=== PATIENT | male | born 1965 | race African-American/Black ===

== ENCOUNTER 2016-10-03 19:01 | Observation (INO) | payer OTHER ==
[~2016-10-03] VITALS: Ht 182.9 cm; Wt 121.8 kg
[~2016-10-03 19:01] MED LIST: ATOR20TA15 PO; CIAL5TAB PO; DICL50TA PO; GLUC1000 PO; MULTCAP14 PO; NATE120T PO; VITA200013 PO; ZOSTINJ SQ; [UNRECOGNIZED DRUG - CODE] PO
[2016-10-03 19:04] VITALS: BP 145/83; PULSE 66; RESP 17; TEMP 98.6; O2SAT 99
--- NOTE | 2016-10-03 19:16 | PD ---
HPI Chief Complaint: Chest Pain Time Seen by Provider: 19:12 Travel History International Travel<30 days: No Contact w/Intl Traveler<30days: No Traveled to known affect area: No History of Present Illness HPI 51 y/o male here with central chest pain since yesterday that has been persistent. Also feel like both arms heavy. No Hx. Cardiac problems. Not Hypertension. + type 2 DM. Patient took Aspirin today. No fever, Chills, Cough, Heart burn or other symptoms. Pain not worse with exertion. PFSH Past Medical History Blood Disorders: No Cerebrovascular Accident: No Diabetes: Yes Myocardial Infarction: No Ulcer: No Past Surgical History Appendectomy: Yes Social History Alcohol Use: Yes (APPROX 1 DRINK PER MONTH) Tobacco Use: No Substance Use: No Allergies-Medications (Allergen,Severity, Reaction): Coded Allergies: Butalbital (Verified Adverse Reaction, Severe, hallucinating, severe weakness, 10/03/16) Uncoded Allergies: BYDUREON (Adverse Reaction, Severe, MUSCLE SPASMS, 07/02/15) Reported Meds & Prescriptions Reported Meds & Active Scripts Active Reported Glucophage (Metformin HCl) 1,000 Mg Tab 1,000 Mg PO BIDPC With a meal Physical Exam Narrative EXAM Completed at Medical Bed after placement. Data Data Last Documented VS Orders Electrocardiogram (10/03/16 19:32) Basic Metabolic Panel (Bmp) (10/03/16 19:32) Ckmb (Isoenzyme) Profile (10/03/16 19:32) Complete Blood Count With Diff (10/03/16 19:32) Prothrombin Time / Inr (Pt) (10/03/16 19:32) Act Partial Throm Time (Ptt) (10/03/16 19:32) Troponin I (10/03/16 19:32) Chest, Single Ap (10/03/16 19:32) Ecg Monitoring (10/03/16 19:32) Iv Access Insert/Monitor (10/03/16 19:32) Oximetry (10/03/16 19:32) Sodium Chloride 0.9% Flush (Ns Flush) (10/03/16 19:45) CKMB (10/03/16 19:45) CKMB% (10/03/16 19:45) Admit Order (Ed Use Only) (10/03/16 21:46) Labs MDM Medical Decision Making Medical Screen Exam Complete: Yes Emergency Medical Condition: Yes Condition: Stable Samson Mcgill Oct 03, 2016 19:16 Laboratory Tests Test 10/03/16 19:45 White Blood Count 8.2 TH/MM3 Red Blood Count 5.17 MIL/MM3 Hemoglobin 13.8 GM/DL Hematocrit 41.4 % Mean Corpuscular Volume 80.1 FL Mean Corpuscular Hemoglobin 26.7 PG Mean Corpuscular Hemoglobin 33.4 % Concent Red Cell Distribution Width 14.7 % Platelet Count 179 TH/MM3 Mean Platelet Volume 9.2 FL Neutrophils (%) (Auto) 61.0 % Lymphocytes (%) (Auto) 30.9 % Monocytes (%) (Auto) 7.4 % Eosinophils (%) (Auto) 0.4 % Basophils (%) (Auto) 0.3 % Neutrophils # (Auto) 5.0 TH/MM3 Lymphocytes # (Auto) 2.5 TH/MM3 Monocytes # (Auto) 0.6 TH/MM3 Eosinophils # (Auto) 0.0 TH/MM3 Basophils # (Auto) 0.0 TH/MM3 CBC Comment DIFF FINAL Differential Comment Prothrombin Time 10.6 SEC Prothromb Time International 1.0 RATIO Ratio Activated Partial 29.4 SEC Thromboplast Time Sodium Level 139 MEQ/L Potassium Level 3.6 MEQ/L Chloride Level 103 MEQ/L Carbon Dioxide Level 29.2 MEQ/L Anion Gap 7 MEQ/L Blood Urea Nitrogen 10 MG/DL Creatinine 1.15 MG/DL Estimat Glomerular Filtration 82 ML/MIN Rate Random Glucose 118 MG/DL Calcium Level 9.0 MG/DL Total Creatine Kinase 722 U/L Creatine Kinase MB 4.1 NG/ML Creatine Kinase MB % 0.6 % Troponin I LESS THAN 0.02 NG/ML [facility] Medical Decision Making Medical Screen Exam Complete: Yes Emergency Medical Condition: Yes Samson Mcgill Oct 03, 2016 19:16
--- NOTE | 2016-10-03 19:35 | PD ---
HPI Chief Complaint: Chest Pain Time Seen by Provider: 19:21 Travel History International Travel<30 days: No Contact w/Intl Traveler<30days: No Traveled to known affect area: No History of Present Illness HPI This patient complains of chest pain. Duration is 24 hours. Severity is moderate. Location is center and just left of center in his chest. Feels like an aching pressure. It is not exertional. He denies personal history of cardiac disease. Never had stress testing. He had an aspirin earlier today. No alleviating factors. PFSH Past Medical History Blood Disorders: No Cerebrovascular Accident: No Diabetes: Yes Myocardial Infarction: No Ulcer: No Past Surgical History Appendectomy: Yes Social History Alcohol Use: Yes (APPROX 1 DRINK PER MONTH) Tobacco Use: No Substance Use: No Allergies-Medications (Allergen,Severity, Reaction): Coded Allergies: Butalbital (Verified Adverse Reaction, Severe, hallucinating, severe weakness, 10/03/16) Uncoded Allergies: BYDUREON (Adverse Reaction, Severe, MUSCLE SPASMS, 07/02/15) Reported Meds & Prescriptions Reported Meds & Active Scripts Active Atorvastatin (Atorvastatin Calcium) 20 Mg Tab 20 Mg PO HS Must complete FASTING blood tests tomasz! Reported Diclofenac Potassium 50 Mg Tab 50 Mg PO Q8HR Multi For Him (Multiple Vitamins W/ Minerals) 1 Cap Cap 1 Cap PO DAILY Glucophage (Metformin HCl) 1,000 Mg Tab 1,000 Mg PO BIDPC With a meal Cialis (Tadalafil) 5 Mg Tab 5 Mg PO DAILY Do not exceed 1 dose/day. Review of Systems General / Constitutional: No: Fever Eyes: No: Visual changes HENT: No: Headaches Cardiovascular: Positive: Chest Pain or Discomfort Respiratory: No: Shortness of Breath Gastrointestinal: No: Abdominal Pain Genitourinary: No: Dysuria Musculoskeletal: No: Pain Skin: No Rash Neurologic: No: Weakness Psychiatric: No: Depression Endocrine: No: Polydipsia Hematologic/Lymphatic: No: Easy Bruising Physical Exam Narrative GENERAL: Well-nourished, well-developed patient in no apparent distress. SKIN: Focused skin assessment reveals no rash and nodules. Skin is Warm and dry. HEAD: Atraumatic. Normocephalic. EYES: Pupils equal and round. No scleral icterus. No injection or drainage. ENT: No nasal bleeding or discharge. Mucous membranes pink and moist. NECK: Trachea midline. No JVD. CARDIOVASCULAR: Regular rate and rhythm. No murmur appreciated. RESPIRATORY: No accessory muscle use. Clear to auscultation. Breath sounds equal bilaterally. GASTROINTESTINAL: Abdomen soft, non-tender, nondistended. Hepatic and splenic margins not palpable. MUSCULOSKELETAL: No obvious deformities. No clubbing. No cyanosis. No edema. NEUROLOGICAL: Awake and alert. No obvious cranial nerve deficits. Motor grossly within normal limits. Normal speech. PSYCHIATRIC: Appropriate mood and affect; insight and judgment normal. Data Data Last Documented VS Vital Signs Date Time Temp Pulse Resp B/P Pulse Ox O2 Delivery O2 Flow Rate FiO2 10/03/16 19:37 60 18 135/72 99 Nasal Cannula 2 10/03/16 19:04 98.6 Orders Electrocardiogram (10/03/16 19:32) Basic Metabolic Panel (Bmp) (10/03/16 19:32) Ckmb (Isoenzyme) Profile (10/03/16 19:32) Complete Blood Count With Diff (10/03/16 19:32) Prothrombin Time / Inr (Pt) (10/03/16 19:32) Act Partial Throm Time (Ptt) (10/03/16 19:32) Troponin I (10/03/16 19:32) Chest, Single Ap (10/03/16 19:32) Ecg Monitoring (10/03/16 19:32) Iv Access Insert/Monitor (10/03/16 19:32) Oximetry (10/03/16 19:32) Sodium Chloride 0.9% Flush (Ns Flush) (10/03/16 19:45) CKMB (10/03/16 19:45) CKMB% (10/03/16 19:45) Admit Order (Ed Use Only) (10/03/16 21:46) Labs Laboratory Tests Test 10/03/16 19:45 White Blood Count 8.2 TH/MM3 Red Blood Count 5.17 MIL/MM3 Hemoglobin 13.8 GM/DL Hematocrit 41.4 % Mean Corpuscular Volume 80.1 FL Mean Corpuscular Hemoglobin 26.7 PG Mean Corpuscular Hemoglobin 33.4 % Concent Red Cell Distribution Width 14.7 % Platelet Count 179 TH/MM3 Mean Platelet Volume 9.2 FL Neutrophils (%) (Auto) 61.0 % Lymphocytes (%) (Auto) 30.9 % Monocytes (%) (Auto) 7.4 % Eosinophils (%) (Auto) 0.4 % Basophils (%) (Auto) 0.3 % Neutrophils # (Auto) 5.0 TH/MM3 Lymphocytes # (Auto) 2.5 TH/MM3 Monocytes # (Auto) 0.6 TH/MM3 Eosinophils # (Auto) 0.0 TH/MM3 Basophils # (Auto) 0.0 TH/MM3 CBC Comment DIFF FINAL Differential Comment Prothrombin Time 10.6 SEC Prothromb Time International 1.0 RATIO Ratio Activated Partial 29.4 SEC Thromboplast Time Sodium Level 139 MEQ/L Potassium Level 3.6 MEQ/L Chloride Level 103 MEQ/L Carbon Dioxide Level 29.2 MEQ/L Anion Gap 7 MEQ/L Blood Urea Nitrogen 10 MG/DL Creatinine 1.15 MG/DL Estimat Glomerular Filtration 82 ML/MIN Rate Random Glucose 118 MG/DL Calcium Level 9.0 MG/DL Total Creatine Kinase 722 U/L Creatine Kinase MB 4.1 NG/ML Creatine Kinase MB % 0.6 % Troponin I LESS THAN 0.02 NG/ML [facility] Medical Decision Making Medical Screen Exam Complete: Yes Emergency Medical Condition: Yes Medical Record Reviewed: Yes Differential Diagnosis Differential diagnosis includes FL, angina, pericarditis, pleurisy, GERD, anxiety. Narrative Course I have reviewed the patient's electronic medical record. Patient was here several months ago with ankle injury IV placed I reviewed the EKG which shows sinus rhythm with heart rate of 59 and first- degree AV block, no ST elevation I reviewed the chest x-ray which is negative Extended cardiac monitoring shows sinus bradycardia without ectopy CBC is normal Metabolic profile is normal CK shows an elevation of CK of 700 but the MB percent is normal Troponin is negative Coagulation studies are normal Patient is multiple risk factors for cardiac disease but he has atypical pain with a negative workup here. He will be a 23 hour observation in the chest pain center in order to rule out cardiac cause of his symptoms. Diagnosis Primary Impression: Chest pain in adult Additional Impressions: Diabetes mellitus type 2, uncomplicated Qualified Code: E11.9 - Type 2 diabetes mellitus without complication, without long-term current use of insulin Hyperlipidemia with target LDL less than 100 Admitting Information Admitting Physician Requests: Observation Jose Berman MD Oct 03, 2016 19:35
[2016-10-03 19:37] VITALS: BP 135/72; PULSE 60; RESP 18; O2SAT 99
[2016-10-03] MEDS ORDERED: SODIUM CHLORIDE 0.9% FLUSH 10 ML FLUSH IVF PRN (19:45)
--- NOTE | 2016-10-03 20:23 | RADRPT ---
EXAM DATE/TIME: 10/03/2016 20:07 [place] COMPARISON: No previous studies available for comparison. INDICATIONS : Chest Pressure MEDICAL HISTORY : None. SURGICAL HISTORY : None. ENCOUNTER: Initial ACUITY: 1 day PAIN SCORE: 3/10 LOCATION: Bilateral chest FINDINGS: A single view of the chest demonstrates the lungs to be symmetrically aerated without evidence of mas s, infiltrate or effusion. The cardiomediastinal contours are unremarkable. Osseous structures are intact. CONCLUSION: No acute cardiopulmonary process. Torsten Duffy MD on October 03, 2016 at 20:21 Board Certified Radiologist. This report was verified electronically.
[2016-10-03 20:30] LABS: BASOPHIL % 0.3 % (0.0-2.0); EOSINOPHIL % 0.4 % (0.0-4.0); HEMATOCRIT 41.4 % (39.0-51.0); HEMO FLAGS DIFF FINAL; LYMPH % 30.9 % (9.0-44.0); LYMPHOCYTE # 2.5 TH/MM3 (1.0-4.8); MEAN CELL VOLUME 80.1 FL (80.0-100.0); MEAN CORPUSCULAR HEMOGLOBIN 26.7 PG (27.0-34.0); MEAN CORPUSCULAR HGB CONC 33.4 % (32.0-36.0); MONO % 7.4 % (0.0-8.0); PLATELET COUNT 179 TH/MM3 (150-450); RED BLOOD COUNT 5.17 MIL/MM3 (4.50-5.90); RED CELL DISTRIBUTION WIDTH 14.7 % (11.6-17.2); WHITE BLOOD COUNT 8.2 TH/MM3 (4.0-11.0)
[2016-10-03 20:37] LABS: APTT (PATIENT) 29.4 SEC (24.3-30.1); PROTHROMBIN TIME - PATIENT 10.6 SEC (9.8-11.6)
[2016-10-03 20:46] LABS: ANION GAP 7 MEQ/L (5-15); BICARBONATE 29.2 MEQ/L (21.0-32.0); BLOOD UREA NITROGEN 10 MG/DL (7-18); CHLORIDE 103 MEQ/L (98-107); GLOMERULAR FILTRATION RATE 82 ML/MIN (>89); POTASSIUM 3.6 MEQ/L (3.5-5.1); SODIUM (NA) 139 MEQ/L (136-145)
[2016-10-03 20:50] LABS: CREATINE KINASE 722 U/L (39-308)
[2016-10-03 21:03] LABS: CKMB 4.1 NG/ML (0.5-3.6)
[2016-10-03 22:35] VITALS: BP 158/78; PULSE 78; RESP 18; O2SAT 99
[2016-10-04] MEDS ORDERED: SODIUM CHLORIDE 0.9% FLUSH 10 ML FLUSH IV FLUSH ONE (02:30)
[2016-10-04] MEDS ORDERED: ONDANSETRON HCL 4 MG/2 ML VIAL IV PRN (02:30)
[2016-10-04] MEDS ORDERED: SODIUM CHLORIDE 0.9% FLUSH 10 ML FLUSH IV FLUSH PRN (02:30)
[2016-10-04 02:51] VITALS: BP 140/68; PULSE 88; RESP 18; O2SAT 99
[2016-10-04 02:56] VITALS: O2SAT 99
[2016-10-04 03:53] LABS: CREATINE KINASE 541 U/L (39-308)
[2016-10-04 04:07] LABS: CKMB 3.5 NG/ML (0.5-3.6)
[2016-10-04 04:34] VITALS: BP 126/81; PULSE 59; RESP 19; TEMP 98.1; O2SAT 98
[2016-10-04 07:13] LABS: CREATINE KINASE 459 U/L (39-308)
[2016-10-04 07:25] LABS: CKMB 3.1 NG/ML (0.5-3.6)
[2016-10-04 08:58] VITALS: PULSE 58
--- NOTE | 2016-10-04 08:59 | HHI.HP ---
HPI Primary Care Physician Ariana Rodas MD Chief Complaint Chest pressure History of Present Illness 51-year-old male with known diabetes and hyperlipidemia presents to the emergency room for further evaluation of chest pain. Onset Wednesday approximately 8 PM. Location substernal described as chest pressure. No radiation. Has been constant throughout weekend. Movement or position does not make pain better or worse. Nonexertional component. Deep breathing does not make pain better or worse. No associated symptoms of nausea, vomiting, or diaphoresis. No relieving factors. Precipitating factors may have been work related. 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 Never had formal stress testing. encouraged him to come to the emergency room for further evaluation. Review of Systems General: No fatigue,weakness, fever, chills, or recent illness. Has been in his general state of health diabetes controlled, last hemoglobin A1c 3 months ago 6.3%. HEENT: No HOFF, no vision changes, no nasal congestion or drainage, no dysphasia CV: As stated above. No current chest pain or pressure. No palpitations, intermittent leg pain, dizziness RESP: No SOB, cough, wheeze, or recent URI. GI: No nausea, vomiting, bowel changes, diarrhea, constipation, pain, distention , melena, blood in the stool. No change in appetite, no unintentional weight gain or weight loss : No dysuria, urgency, frequency EXT: No lower leg edema, no paraesthesias MS: No discomfort or change in ROM NEURO: No change in memory, dizziness, difficulty with balance, LOC, motor/ sensory deficits PSYCH: No anxiety or depression SKIN: No rashes, no concerning lesions Past Family Social History Allergies: Coded Allergies: Butalbital (Verified Adverse Reaction, Severe, hallucinating, severe weakness, 10/03/16) Uncoded Allergies: BYDUREON (Adverse Reaction, Severe, MUSCLE SPASMS, 07/02/15) Past Medical History Diabetesdiagnosed in 2009, hyperlipidemia Past Surgical History Appendectomy, 2008 scrotal hematoma evacuation Reported Medications Reported Meds & Active Scripts Active Atorvastatin (Atorvastatin Calcium) 20 Mg Tab 20 Mg PO HS Must complete FASTING blood tests tomasz! Glucophage (Metformin HCl) 1,000 Mg Tab 1,000 Mg PO BIDPC With a meal (generally takes 500 mg daily due to GI effects, last hemoglobin A1c reported to be 6.3% 3 months ago) No longer takes multivitamin, diclofenac, or Cialis. Does not recall ever being on an NURA or ARB. Active Ordered Medications Current Medications Medications (Trade) Dose Ordered Sig/Ana Route Start Time Stop Time Status Last Admin (Zofran Inj) 4 mg Q6H PRN IV 10/04/16 02:30 (Aspirin) 325 mg DAILY PO 10/04/16 09:00 10/04/16 08:47 Family History Mother at age 65 from heart problems, hypertension, diabetes, and. Mother needed open heart surgery approximately age 55 never completed. Social History Known diabetes and hyperlipidemia. No known hypertension. Lifelong nonsmoker. Rare alcohol use. Denies any illegal drug use. 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 . Past cardiac testing No past cardiac testing. Physical Exam Vital Signs Vital Signs Date Time Temp Pulse Resp B/P Pulse Ox O2 Delivery O2 Flow Rate FiO2 10/04/16 04:34 98.1 59 19 126/81 98 10/04/16 02:56 99 10/04/16 02:51 88 18 140/68 99 Room Air 10/03/16 22:35 78 18 158/78 99 Nasal Cannula 2 10/03/16 19:37 60 18 135/72 99 Nasal Cannula 2 10/03/16 19:37 135/72 10/03/16 19:37 57 10/03/16 19:04 98.6 66 17 145/83 99 Room Air Physical Exam GENERAL: Alert WN, WD, NAD, pleasant, male HEAD: NC, AT EYES: Sclera clear, conjunctiva without injection, pupils equal and round ENT: Mucous membranes pink and moist, no nasal discharge or bleeding NECK: Supple, no masses, trachea midline CV: RRR, without murmur, rub, gallop, no JVD, S1-S2 no S3-S4. No carotid bruits. RESP: Clear lungs throughout bilateral, no crackles, wheeze, rhonchi, symmetrical chest rise, nonlabored, able to speak in full sentences ABD: Soft, NT, ND, obese, no masses, positive bowel tones BACK: No CVAT, no scoliosis EXT: Pulses +24, no dependent edema MS: Normal tone 4 extremities, nontender, no obvious deformities, full range of motion NEURO: CN II through CN XII grossly intact, motor strength 5/5, gait WNL PSYCH: A+O 3, pleasant affect, appropriate speech, appropriate mood and affect , insight and judgment SKIN: Normal turgor, normal texture, no lesions, no rashes, brisk cap refill, even hair distribution Laboratory Laboratory Tests Test 10/03/16 10/04/16 10/04/16 19:45 03:15 06:20 White Blood Count 8.2 Red Blood Count 5.17 Hemoglobin 13.8 Hematocrit 41.4 Mean Corpuscular Volume 80.1 Mean Corpuscular Hemoglobin 26.7 Mean Corpuscular Hemoglobin 33.4 Concent Red Cell Distribution Width 14.7 Platelet Count 179 Mean Platelet Volume 9.2 Neutrophils (%) (Auto) 61.0 Lymphocytes (%) (Auto) 30.9 Monocytes (%) (Auto) 7.4 Eosinophils (%) (Auto) 0.4 Basophils (%) (Auto) 0.3 Neutrophils # (Auto) 5.0 Lymphocytes # (Auto) 2.5 Monocytes # (Auto) 0.6 Eosinophils # (Auto) 0.0 Basophils # (Auto) 0.0 CBC Comment DIFF FINAL Differential Comment Prothrombin Time 10.6 Prothromb Time International 1.0 Ratio Activated Partial 29.4 Thromboplast Time Sodium Level 139 Potassium Level 3.6 Chloride Level 103 Carbon Dioxide Level 29.2 Anion Gap 7 Blood Urea Nitrogen 10 Creatinine 1.15 Estimat Glomerular Filtration 82 Rate Random Glucose 118 Calcium Level 9.0 Total Creatine Kinase 722 541 459 Creatine Kinase MB 4.1 3.5 3.1 Creatine Kinase MB % 0.6 0.6 0.7 Troponin I LESS THAN 0.02 LESS THAN 0.02 LESS THAN 0.02 Result Diagram: 10/03/16194410/03/161944 Imaging Last Impressions Chest X-Ray 10/03/161931 Signed Impressions: Service Date/Time: Monday, October 03, 2016 20:07 - CONCLUSION: No acute cardiopulmonary process. Torsten Duffy MD Course EKGs Normal sinus bradycardia, first-degree AV block, no ST segment changes Assessment and Plan Assessment and Plan #1 Chest painadmitted to chest pain center. Ruled out with 3 sets of EKGs, cardiac enzymes, and monitored overnight. Will be seen and evaluated by Dr. Joel Rios. Discussed the likelihood of patient complete an exercise stress test as he has never had any formal cardiac testing. Patient is agreeable to this plan a care. Atypical chest pain most likely musculoskeletal in nature. #2 Diabetescontinue metformin. Encouraged patient to discuss with PCP and/or costume maker adding an NURA or ARB to medication regimen. #3 HyperlipidemiaHold Lipitor at this time, follow up with PCP for redraw of CPK in one month. #4 Musculoskeletal painmay use warm heat to affected area, naproxen or ibuprofen when necessary for pain, follow with PCP if pain continues. Marjorie Soriano [facility] Oct 04, 2016 08:59
[2016-10-04] MEDS ORDERED: NITROGLYCERIN 0.4 MG SL 25 TABS/BTL SL PRN (09:00)
[2016-10-04] MEDS ORDERED: ACETAMINOPHEN 500 MG CPLT PO PRN (09:00)
[2016-10-04] MEDS ORDERED: ASPIRIN 325 MG TAB PO SCH (09:00)
[2016-10-04 12:31] VITALS: BP 135/88; PULSE 76; RESP 18; TEMP 97.2; O2SAT 99
--- NOTE | 2016-10-04 13:17 | TR ---
Date Performed: 10/04/2016 Time Performed: 12:04:01 DOCTOR: Joel Rios DRUG LIST: CLINICAL HISTORY: CHEST PAIN REASON FOR TEST: REASON FOR ENDING: OBSERVATION: CONCLUSION: Rito protocol completed. Stopped sec to reaching target heart rate and leg fatigue. Maximum VI=152 Target HR Achieved=85.0% Maximum GX=249/82 Total Exercise Time=7:25. No st t changes to sugg ischemia. No reprod chest discomfort. Rare PVC. Good exercise tolerance. Normal bp response. Recovery quick and unremarkable. COMMENTS: Conclusion: Normal treadmill exercise. No evidence of ischemia.
--- NOTE | 2016-10-04 13:31 | HHI.DCPOC ---
Discharge Care Plan Diagnosis: (1) Musculoskeletal chest pain (2) Elevated CPK (3) Diabetes mellitus type 2, uncomplicated Goals to Promote Your Health * To prevent worsening of your condition and complications * To maintain your health at the optimal level Directions to Meet Your Goals Take your medications as prescribed Follow your dietary instruction Follow activity as directed Keep your appointments as scheduled Take your immunizations and boosters as scheduled If your symptoms worsen call your PCP, if no PCP go to Urgent Care Center or Emergency Room Smoking is Dangerous to Your Health. Avoid second hand smoke Call the 24-hour hour crisis hotline for domestic abuse at Marjorie Soriano Oct 04, 2016 13:31
--- NOTE | 2016-10-04 15:12 | EKG ---
Date Performed: 10/03/2016 Time Performed: 19:47:06 PTAGE: 51 years EKG: SINUS BRADYCARDIA WITH FIRST DEGREE AV BLOCK Poor R wave progression ABNORMAL ECG PREVIOUS TRACING : 08/01/2002 13.35 Since previous tracing, no significant change noted DOCTOR: Joel Rios Interpretating Date/Time 10/04/2016 15:11:25
--- NOTE | 2016-10-04 15:17 | EKG ---
Date Performed: 10/04/2016 Time Performed: 03:17:45 PTAGE: 51 years EKG: SINUS BRADYCARDIA WITH FIRST DEGREE AV BLOCK Poor R wave progression ABNORMAL ECG PREVIOUS TRACING : 10/03/2016 19.47 Since previous tracing, no significant change noted DOCTOR: Joel Rios Interpretating Date/Time 10/04/2016 15:14:47
--- NOTE | 2016-10-04 15:17 | EKG ---
Date Performed: 10/04/2016 Time Performed: 06:25:53 PTAGE: 51 years EKG: SINUS BRADYCARDIA WITH FIRST DEGREE AV BLOCK Poor R wave progression ABNORMAL ECG PREVIOUS TRACING : 10/03/2016 19.47 Since previous tracing, no significant change noted DOCTOR: Joel Rios Interpretating Date/Time 10/04/2016 15:16:40
[2016-10-04] MEDS ORDERED: metFORMIN HCL 500 MG TAB PO SCH (18:00)
[2016-10-04] MEDS ORDERED: ATORVASTATIN 20 MG TAB PO SCH (21:00)
[2016-10-07] MEDS ORDERED: PRAV20TA2 PO (11:46)
--- NOTE | 2016-10-08 11:24 | PD ---
Physical Exam Date Seen by Provider: Oct 03, 2016 Time Seen by Provider: 19:20 Narrative HPI 51 y/o male here with central chest pain since yesterday that has been persistent. Also feel like both arms heavy. No Hx. Cardiac problems. Not Hypertension. + type 2 DM. Patient took Aspirin today. No fever, Chills, Cough, Heart burn or other symptoms. Pain not worse with exertion. Data Data Orders Electrocardiogram (10/03/16 19:32) Basic Metabolic Panel (Bmp) (10/03/16 19:32) Ckmb (Isoenzyme) Profile (10/03/16 19:32) Complete Blood Count With Diff (10/03/16:32) Prothrombin Time / Inr (Pt) (10/03/16:32) Act Partial Throm Time (Ptt) (10/03/16:32) Troponin I (10/03/16 19:32) Chest, Single Ap (10/03/16 19:32) Ecg Monitoring (10/03/16 19:32) Iv Access Insert/Monitor (10/03/16 19:32) Oximetry (10/03/16 19:32) Sodium Chloride 0.9% Flush (Ns Flush) (10/03/16 19:45) CKMB (10/03/16 19:45) CKMB% (10/03/16 19:45) Admit Order (Ed Use Only) (10/03/16 21:46) [facility] Medical Record Reviewed: Yes Supervised Visit with MEETA: Yes Diagnosis Primary Impression: Chest pain in adult Additional Impressions: Hyperlipidemia with target LDL less than 100 Diabetes mellitus type 2, uncomplicated Patient Instructions: Metformin (By mouth), Chest Pain (DC) Condition: Stable Samson Mcgill Oct 08, 2016 11:24
== END 2016-10-04 15:15 | disposition home or self-care (01) ==
LOC: NEPE 19:01 → NEDA 21:48 → NEPGCP 10-04 04:04
DX: R07.89 Other chest pain (principal); I44.0 Atrioventricular block, first degree; M79.1 Myalgia; E11.9 Type 2 diabetes mellitus without complications; I10 Essential (primary) hypertension; E78.5 Hyperlipidemia, unspecified; Z79.84 Long term (current) use of oral hypoglycemic drugs
CPT/HCPCS: 71010; 80048; 82550; 82552; 84484; 85025; 85610; 85730; 93005; 93017; 99285; G0378

== ENCOUNTER 2017-08-26 12:55 | Inpatient (IN) | payer OTHER ==
[~2017-08-26] VITALS: Ht 182.9 cm; Wt 130.4 kg
[2017-08-26] VITALS (9 sets, daily range): BP systolic 133–191; BP diastolic 75–118; PULSE 65–81; RESP 16–21; TEMP 97.6–98.9; O2SAT 98–100
[~2017-08-26 12:55] MED LIST changes: -ATOR20TA15 PO; +BENZ1CAP54 PO; -CIAL5TAB PO; -DICL50TA PO; +FLUT50SP EACH NARE; +MONT10TA4 PO; -MULTCAP14 PO; -NATE120T PO; -VITA200013 PO; -ZOSTINJ SQ; -[UNRECOGNIZED DRUG - CODE] PO
[2017-08-26] MEDS ORDERED: EZET1TAB8 PO (13:27)
[2017-08-26] MEDS ORDERED: CIAL5TAB PO (13:27)
[2017-08-26] MEDS ORDERED: CHOL1CAP34 PO (13:27)
[2017-08-26] MEDS ORDERED: SODIUM CHLORIDE 0.9% FLUSH 10 ML FLUSH IVF PRN (13:30)
--- NOTE | 2017-08-26 13:55 | PD ---
HPI Chief Complaint: Numbness/Tingling Time Seen by Provider: 13:11 Travel History International Travel<30 days: No Contact w/Intl Traveler<30days: No Traveled to known affect area: No History of Present Illness HPI Patient is a 52-year-old male presenting to the emergency department for evaluation of right arm, face and hand numbness. Patient states it occurred last Wednesday, resolved and then occurred again Wednesday and has been present since. States it feels as if his arm is sleeping and tingly. He denies any chest pain, shortness of breath, headache. He states that he has been fighting a cold for the last week with symptoms including nasal congestion, cough. He last took ibuprofen yesterday. He denies any weakness or in his extremities. No speech abnormalities or slurring, no facial drooping. Symptom onset was gradual, symptom severity is mild to moderate. There are no alleviating factors. 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 Patient's past medical history is significant for type 2 diabetes, hyperlipidemia, obesity, vitamin D deficiency, BPH. PFSH Past Medical History Cardiovascular Problems: Yes High Cholesterol: Yes Diabetes: Yes Patient Takes Glucophage: Yes Genitourinary: Yes (BPH) Medical other: Yes (VITAMIN D DEFICIENCY ) Influenza Vaccination: Yes Past Surgical History Appendectomy: Yes Coronary Artery Bypass Graft: No Other Surgery: Yes (scrotal hematoma 2009) Family History Family Myocardial Infarction: Yes Social History Alcohol Use: No Tobacco Use: No Substance Use: No Allergies-Medications (Allergen,Severity, Reaction): Coded Allergies: butalbital (Unverified Adverse Reaction, Severe, hallucinating, severe weakness, 08/26/17) Uncoded Allergies: BYDUREON (Adverse Reaction, Severe, MUSCLE SPASMS, 07/02/15) Reported Meds & Prescriptions Reported Meds & Active Scripts Active Montelukast (Montelukast Sodium) 10 Mg Tab 10 Mg PO HS Reported Ezetimibe 10 Mg Tab 10 Mg PO DAILY Cialis (Tadalafil) 5 Mg Tab 5 Mg PO DAILY Do not exceed 1 dose/day. Vitamin D3 (Cholecalciferol) 50,000 Unit Cap 50,000 Units PO Q7D Glucophage (Metformin HCl) 1,000 Mg Tab 1,000 Mg PO BIDPC With a meal Review of Systems Except as stated in HPI: all other systems reviewed are Neg HENT: No: Headaches Cardiovascular: No: Chest Pain or Discomfort Respiratory: No: Shortness of Breath Gastrointestinal: No: Nausea, Abdominal Pain Neurologic: Positive: Paresthesia, Sensory Disturbance, No: Weakness Physical Exam Narrative GENERAL: Obese, well-developed, alert -[place] male. Presenting in no acute distress SKIN: Warm and dry. HEAD: Atraumatic. Normocephalic. EYES: Pupils equal and round. No scleral icterus. No injection or drainage. ENT: No nasal bleeding or discharge. Mucous membranes pink and moist. NECK: Trachea midline. No JVD. CARDIOVASCULAR: Regular rate and rhythm. 2/6 systolic murmur RESPIRATORY: No accessory muscle use. Clear to auscultation. Breath sounds equal bilaterally. GASTROINTESTINAL: Abdomen soft, non-tender, nondistended. Hepatic and splenic margins not palpable. MUSCULOSKELETAL: Extremities without clubbing, cyanosis, or edema. No obvious deformities. NEUROLOGICAL: Awake and alert. No obvious cranial nerve deficits. Motor grossly within normal limits. Five out of 5 muscle strength in the arms and legs. Normal speech. No focal deficits. PSYCHIATRIC: Appropriate mood and affect; insight and judgment normal. Data Data Last Documented VS Vital Signs Date Time Temp Pulse Resp B/P (MAP) Pulse Ox O2 Delivery O2 Flow Rate FiO2 08/26/17 14:15 69 18 137/78 (97) 98 Room Air 08/26/17 13:05 98.9 Orders Orders Electrocardiogram (08/26/17 13:22) Prothrombin Time / Inr (Pt) (08/26/17 13:22) Act Partial Throm Time (Ptt) (08/26/17 13:22) Complete Blood Count With Diff (08/26/17 13:22) Comprehensive Metabolic Panel (08/26/17 13:22) Troponin I (08/26/17 13:22) Ct Brain W/O Iv Contrast(Rout) (08/26/17 13:22) Ecg Monitoring (08/26/17 13:22) Iv Access Insert/Monitor (08/26/17 13:22) Oximetry (08/26/17 13:22) Blood Glucose (08/26/17 13:22) Sodium Chloride 0.9% Flush (Ns Flush) (08/26/17 13:30) Ct Cerv Spine W/O Contrast (08/26/17 ) Mri Brain W/O Contrast (08/26/17 ) Aspirin Chew (Aspirin Chew) (08/26/17 15:45) Mra Brain W/O Contrast (Cow) (08/26/17 ) Admit Order (Ed Use Only) (08/26/17 15:50) Labs Laboratory Tests Test 08/26/17 13:05 White Blood Count 6.7 TH/MM3 Red Blood Count 5.34 MIL/MM3 Hemoglobin 14.1 GM/DL Hematocrit 42.9 % Mean Corpuscular Volume 80.2 FL Mean Corpuscular Hemoglobin 26.4 PG Mean Corpuscular Hemoglobin Concent 32.9 % Red Cell Distribution Width 14.3 % Platelet Count 193 TH/MM3 Mean Platelet Volume 8.5 FL Neutrophils (%) (Auto) 64.2 % Lymphocytes (%) (Auto) 29.6 % Monocytes (%) (Auto) 5.7 % Eosinophils (%) (Auto) 0.2 % Basophils (%) (Auto) 0.3 % Neutrophils # (Auto) 4.3 TH/MM3 Lymphocytes # (Auto) 2.0 TH/MM3 Monocytes # (Auto) 0.4 TH/MM3 Eosinophils # (Auto) 0.0 TH/MM3 Basophils # (Auto) 0.0 TH/MM3 CBC Comment DIFF FINAL Differential Comment Prothrombin Time 9.7 SEC Prothromb Time International Ratio 1.0 RATIO Activated Partial Thromboplast Time 26.8 SEC Blood Urea Nitrogen 11 MG/DL Creatinine 1.13 MG/DL Random Glucose 269 MG/DL Total Protein 8.1 GM/DL Albumin 3.7 GM/DL Calcium Level 9.6 MG/DL Alkaline Phosphatase 86 U/L Aspartate Amino Transf (AST/SGOT) 31 U/L Alanine Aminotransferase (ALT/SGPT) 78 U/L Total Bilirubin 0.3 MG/DL Sodium Level 131 MEQ/L Potassium Level 4.1 MEQ/L Chloride Level 96 MEQ/L Carbon Dioxide Level 26.7 MEQ/L Anion Gap 8 MEQ/L Estimat Glomerular Filtration Rate 83 ML/MIN Troponin I LESS THAN 0.02 NG/ML MDM Medical Decision Making Medical Screen Exam Complete: Yes Emergency Medical Condition: Yes Interpretation(s) Laboratory Tests Test 08/26/17 13:05 White Blood Count 6.7 TH/MM3 Red Blood Count 5.34 MIL/MM3 Hemoglobin 14.1 GM/DL Hematocrit 42.9 % Mean Corpuscular Volume 80.2 FL Mean Corpuscular Hemoglobin 26.4 PG Mean Corpuscular Hemoglobin Concent 32.9 % Red Cell Distribution Width 14.3 % Platelet Count 193 TH/MM3 Mean Platelet Volume 8.5 FL Neutrophils (%) (Auto) 64.2 % Lymphocytes (%) (Auto) 29.6 % Monocytes (%) (Auto) 5.7 % Eosinophils (%) (Auto) 0.2 % Basophils (%) (Auto) 0.3 % Neutrophils # (Auto) 4.3 TH/MM3 Lymphocytes # (Auto) 2.0 TH/MM3 Monocytes # (Auto) 0.4 TH/MM3 Eosinophils # (Auto) 0.0 TH/MM3 Basophils # (Auto) 0.0 TH/MM3 CBC Comment DIFF FINAL Differential Comment Prothrombin Time 9.7 SEC Prothromb Time International Ratio 1.0 RATIO Activated Partial Thromboplast Time 26.8 SEC Blood Urea Nitrogen 11 MG/DL Creatinine 1.13 MG/DL Random Glucose 269 MG/DL Total Protein 8.1 GM/DL Albumin 3.7 GM/DL Calcium Level 9.6 MG/DL Alkaline Phosphatase 86 U/L Aspartate Amino Transf (AST/SGOT) 31 U/L Alanine Aminotransferase (ALT/SGPT) 78 U/L Total Bilirubin 0.3 MG/DL Sodium Level 131 MEQ/L Potassium Level 4.1 MEQ/L Chloride Level 96 MEQ/L Carbon Dioxide Level 26.7 MEQ/L Anion Gap 8 MEQ/L Estimat Glomerular Filtration Rate 83 ML/MIN Troponin I LESS THAN 0.02 NG/ML Vital Signs Date Time Temp Pulse Resp B/P (MAP) Pulse Ox O2 Delivery O2 Flow Rate FiO2 08/26/17 13:38 Room Air 08/26/17 13:05 98.9 71 16 142/ 99 Differential Diagnosis Radiculopathy versus neuropathy versus less likely TIA versus metabolic abnormality versus other Narrative Course Patient is a 52-year-old male that presented to emergency for evaluation of paresthesia in his right arm for the last week. There are no focal deficits on exam. Labs and imaging ordered and pending. Patient's vital signs are stable. He does have a family history of CVA. Patient has multiple risk factors including obesity, type [address] scan of the brain which was read by the radiologist shows a tiny focus of decreased attenuation in the expected region of the anterior limb of the right internal capsule consistent with possible lacunar infarct of indeterminate age, clinical correlation is recommended. CT scan of the cervical spine show small disc bulges at C4-5 C5-6 and C6-7. No acute fracture or destructive lesion identified. CBC with no acute findings, chemistry with a sodium of 131, chloride 96, glucose 269, cardiac enzymes are negative 1 set. Discussed findings with my attending physician. Patient will be given aspirin 324 mg chewable [address] dose[address] Discussed findings [address] Dr. vargas who accepted admission. MRI an MRI of the brain has been ordered, MRI checklist completed. Diagnosis Primary Impression: CVA (cerebral vascular accident) Qualified Codes: I63.9 - Cerebral infarction, unspecified Additional Impressions: Diabetes mellitus type 2, uncomplicated Qualified Codes: E11.9 - Type 2 diabetes mellitus without complications Paresthesia and pain of right extremity Admitting Information Admitting Physician Requests: Admit Condition: Stable Cande Solis Aug 26, 2017 13:55
[2017-08-26 13:57] LABS: AUTOMATED NEUTROPHIL # 4.3 TH/MM3 (1.8-7.7); BASOPHIL % 0.3 % (0.0-2.0); EOSINOPHIL % 0.2 % (0.0-4.0); HEMATOCRIT 42.9 % (39.0-51.0); HEMOGLOBIN 14.1 GM/DL (13.0-17.0); LYMPH % 29.6 % (9.0-44.0); MEAN CELL VOLUME 80.2 FL (80.0-100.0); MEAN CORPUSCULAR HEMOGLOBIN 26.4 PG (27.0-34.0); MEAN CORPUSCULAR HGB CONC 32.9 % (32.0-36.0); MEAN PLATELET VOLUME 8.5 FL (7.0-11.0); MONO % 5.7 % (0.0-8.0); MONOCYTE # 0.4 TH/MM3 (0-0.9); NEUT % 64.2 % (16.0-70.0); PLATELET COUNT 193 TH/MM3 (150-450); RED BLOOD COUNT 5.34 MIL/MM3 (4.50-5.90); RED CELL DISTRIBUTION WIDTH 14.3 % (11.6-17.2); WHITE BLOOD COUNT 6.7 TH/MM3 (4.0-11.0)
[2017-08-26 14:12] LABS: PROTHROMBIN TIME - PATIENT 9.7 SEC (9.8-11.6)
[2017-08-26 14:14] LABS: ALT (GPT) 78 U/L (12-78)
[2017-08-26 14:18] LABS: ALKALINE PHOSPHATASE 86 U/L (45-117); TOTAL BILIRUBIN ADULT 0.3 MG/DL (0.2-1.0); TOTAL PROTEIN 8.1 GM/DL (6.4-8.2); TROPONIN I LESS THAN 0.02 NG/ML (0.02-0.05)
[2017-08-26 14:25] LABS: ALBUMIN 3.7 GM/DL (3.4-5.0); AST (GOT) 31 U/L (15-37); BICARBONATE 26.7 MEQ/L (21.0-32.0); BLOOD UREA NITROGEN 11 MG/DL (7-18); CALCIUM 9.6 MG/DL (8.5-10.1); CHLORIDE 96 MEQ/L (98-107); CREATININE 1.13 MG/DL (0.60-1.30); GLOMERULAR FILTRATION RATE 83 ML/MIN (>89); GLUCOSE,RANDOM 269 MG/DL (74-106); SODIUM (NA) 131 MEQ/L (136-145)
--- NOTE | 2017-08-26 15:18 | RADRPT ---
EXAM DATE/TIME: 08/26/2017 15:06 [facility] COMPARISON: No previous studies available for comparison. INDICATIONS : Numbness and tingling to right arm, hand and mouth. RADIATION DOSE: 43.58 CTDIvol (mGy) MEDICAL HISTORY : Diabetes mellitus type 1. SURGICAL HISTORY : Appendectomy. ENCOUNTER: Initial ACUITY: 1 week PAIN SCALE: 0/10 LOCATION: cranial TECHNIQUE: Multiple contiguous axial images were obtained of the head. Using automated exposure control and adj ustment of the mA and/or kV according to patient size, radiation dose was kept as low as reasonably a chievable to obtain optimal diagnostic quality images. DICOM format image data is available electro nically for review and comparison. FINDINGS: CEREBRUM: The ventricles are normal for age. Tiny focus of decreased attenuation in the expected region of the anterior limb of the right internal capsule consistent with possible lacunar infarct of indeterminat e age. Clinical correlation is recommended. No evidence of midline shift, mass lesion, or hemorrhage. No extra-axial fluid collections are seen. POSTERIOR FOSSA: The cerebellum and brainstem are intact. The 4th ventricle is midline. The cerebellopontine angle i s unremarkable. EXTRACRANIAL: The visualized portion of the orbits is intact. SKULL: The calvaria is intact. No evidence of skull fracture. CONCLUSION: Tiny focus of decreased attenuation in the expected region of the anterior limb of the right internal capsule consistent with possible lacunar infarct of indeterminate age. Clinical correlation is recom mended. Migue Goss MD on August 26, 2017 at 15:13 Board Certified Radiologist. This report was verified electronically.
--- NOTE | 2017-08-26 15:28 | RADRPT ---
EXAM DATE/TIME: 08/26/2017 15:06 [facility] COMPARISON: No previous studies available for comparison. INDICATIONS : Numbness and tingling to right arm, hand and mouth. RADIATION DOSE: 25.82 CTDIvol (mGy) MEDICAL HISTORY : Diabetes mellitus type 1. SURGICAL HISTORY : Appendectomy. ENCOUNTER: Initial ACUITY: 1 week PAIN SCALE: 0/10 LOCATION: neck TECHNIQUE: Volumetric scanning of the cervical spine was performed. Multiplanar reconstructions in the sagittal, coronal and oblique axial planes were performed. Using automated exposure control and adjustment o f the mA and/or kV according to patient size, radiation dose was kept as low as reasonably achievable to obtain optimal diagnostic quality images. DICOM format image data is available electronically f or review and comparison. FINDINGS: VERTEBRAE: Normal vertebral body height. ALIGNMENT: No evidence of subluxation. C2-C3: The bony spinal canal is normal in size. No evidence of disc bulge or herniation. The neural forami na are bilaterally patent. C3-C4: The bony spinal canal is normal in size. No evidence of disc bulge or herniation. The neural forami na are bilaterally patent. C4-C5: There is a small central disc bulge. The thecal space neural foramina are adequate. C5-C6: There is a small broad-based disc bulge. The thecal space and foramina appear adequate. C6-C7: There is broad-based disc bulge which effaces the ventral thecal sac. This is best appreciated on the sagittal imaging. The facet joints are intact. C7-T1: The bony spinal canal is normal in size. No evidence of disc bulge or herniation. The neural forami na are bilaterally patent. CONCLUSION: 1. Small disc bulges at C4/5, C5/6 and C6/7. 2. No acute fracture or destructive lesion identified. Joseph Yo MD on August 26, 2017 at 15:22 Board Certified Radiologist. This report was verified electronically.
[2017-08-26] MEDS ORDERED: ASPIRIN 81 MG CHEW TAB CHEW ONE (15:45)
[2017-08-26] MEDS ORDERED: NALOXONE HCL 0.4 MG/ML AMP IV PUSH PRN (16:15)
[2017-08-26] MEDS ORDERED: SODIUM CHLORIDE 0.9% FLUSH 10 ML FLUSH IV FLUSH PRN (16:15)
[2017-08-26] MEDS ORDERED: ONDANSETRON HCL 4 MG/2 ML VIAL IVP PRN (16:15)
[2017-08-26] MEDS ORDERED: ACETAMINOPHEN/HYDROcodone 325 MG/5 MG TAB PO PRN (16:15)
[2017-08-26] MEDS ORDERED: ACETAMINOPHEN 325 MG TAB PO PRN ×2 (16:15)
[2017-08-26] MEDS ORDERED: MAGNESIUM HYDROXIDE SUSP 30 ML CUP PO PRN (16:15)
--- NOTE | 2017-08-26 16:52 | HHI.HP ---
[facility] Ariana Rodas MD Admission Diagnosis CVA Diagnoses: Chief Complaint: Numbness and tingling right arm, face, lips Travel History International Travel<30 Days: No Contact w/Intl Traveler <30 Da: No Traveled to Known Affected Are: No History of Present Illness Patient is a 52-year-old -[place] male with primary medical history of diabetes, HLD, vitamin D deficiency, obesity, BPH who came into the hospital for complaints of right arm, face, head numbness and tingling. States it started previous day but that got better and occurred again. States that his right hand feels numb there is some tingling sensation and right arm feeling of sleep. States that his face and lips were also numb usually on the right side. Denies any slurred speech, difficulty swallowing changes in vision. However states that with his lips being numb, it is affecting his regular normal speech. States that they have nasal congestion about a week ago and also some cough that he completed antibiotics for it. Denies unilateral weakness. Denies pain and discomfort. Denies SOB/ dyspnea. Denies chest pain, palpitations, headaches, dizziness. Denies fevers, chills, n/v/d. Denies dysuria. CT of the head showed tiny focus of decreased attenuation in the expected region of the anterior limb of the right internal capsule consistent with possible lacunar infarct of indeterminate age. Cervical spine CT showed 1. Small disc bulges at C4-C5, C5-C6 and C6-C7. 2. No acute fracture or destructive lesion identified Brain MRI showed 1. Small area of abnormal diffusion restricted signal involving the left basal ganglia consistent with an area of lacunar infarct Review of Systems Except as stated in HPI: all other systems reviewed are Neg Past Family Social History Past Medical History DM 2 Obesity HLD Vitamin D deficiency BPH Past Surgical History Appendectomy Scrotal hematoma surgery Reported Medications Reported Meds & Active Scripts Active Montelukast (Montelukast Sodium) 10 Mg Tab 10 Mg PO HS Reported Ezetimibe 10 Mg Tab 10 Mg PO DAILY Cialis (Tadalafil) 5 Mg Tab 5 Mg PO DAILY Do not exceed 1 dose/day. Vitamin D3 (Cholecalciferol) 50,000 Unit Cap 50,000 Units PO Q7D Glucophage (Metformin HCl) 1,000 Mg Tab 1,000 Mg PO BIDPC With a meal Allergies: Coded Allergies: butalbital (Unverified Adverse Reaction, Severe, hallucinating, severe weakness, 08/26/17) Uncoded Allergies: BYDUREON (Adverse Reaction, Severe, MUSCLE SPASMS, 07/02/15) Active Ordered Medications Current Medications Medications (Trade) Dose Ordered Sig/Ana Route Start Time Stop Time Status Last Admin (NS Flush) 2 ml UNSCH PRN IV FLUSH 08/26/17 16:15 (NS Flush) 2 ml BID IV FLUSH 08/26/17 21:00 (Tylenol) 650 mg Q4H PRN PO 08/26/17 16:15 (Zofran Inj) 4 mg Q6H PRN IVP 08/26/17 16:15 (Tylenol) 650 mg Q6H PRN PO 08/26/17 16:15 ([place] 5-325 Mg) 1 tab Q4H PRN PO 08/26/17 16:15 (Narcan Inj) 0.4 mg UNSCH PRN IV PUSH 08/26/17 16:15 (Milk Of Magnesia Liq) 30 ml Q12H PRN PO 08/26/17 16:15 Family History Family history of CVA maternal grandfather. Diabetes in the family including siblings. 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 SKIN: Warm and dry. HEAD: Atraumatic. Normocephalic. No temporal or scalp tenderness. EYES: Pupils equal round and reactive. Extraocular motions intact. No scleral icterus. No injection or drainage. ENT: Nose without bleeding. Throat without erythema. Uvula midline. Airway patent. NECK: Trachea midline. CARDIOVASCULAR: Regular rate and rhythm without murmurs, gallops, or rubs. RESPIRATORY: Clear to auscultation. Breath sounds equal bilaterally. No wheezes , rales, or rhonchi. GASTROINTESTINAL: Abdomen soft, non-tender, nondistended. Bowel sounds active 4 MUSCULOSKELETAL: Extremities without clubbing, cyanosis, or edema. NEUROLOGICAL: Awake and alert. Oriented to person, place, time. Cranial nerves II through XII intact. Motor and sensory grossly within normal limits. Five out of 5 muscle strength in all muscle groups. Normal speech. Laboratory Laboratory Tests Test 08/26/17 13:05 White Blood Count 6.7 Red Blood Count 5.34 Hemoglobin 14.1 Hematocrit 42.9 Mean Corpuscular Volume 80.2 Mean Corpuscular Hemoglobin 26.4 Mean Corpuscular Hemoglobin Concent 32.9 Red Cell Distribution Width 14.3 Platelet Count 193 Mean Platelet Volume 8.5 Neutrophils (%) (Auto) 64.2 Lymphocytes (%) (Auto) 29.6 Monocytes (%) (Auto) 5.7 Eosinophils (%) (Auto) 0.2 Basophils (%) (Auto) 0.3 Neutrophils # (Auto) 4.3 Lymphocytes # (Auto) 2.0 Monocytes # (Auto) 0.4 Eosinophils # (Auto) 0.0 Basophils # (Auto) 0.0 CBC Comment DIFF FINAL Differential Comment Prothrombin Time 9.7 Prothromb Time International Ratio 1.0 Activated Partial Thromboplast Time 26.8 Blood Urea Nitrogen 11 Creatinine 1.13 Random Glucose 269 Total Protein 8.1 Albumin 3.7 Calcium Level 9.6 Alkaline Phosphatase 86 Aspartate Amino Transf (AST/SGOT) 31 Alanine Aminotransferase (ALT/SGPT) 78 Total Bilirubin 0.3 Sodium Level 131 Potassium Level 4.1 Chloride Level 96 Carbon Dioxide Level 26.7 Anion Gap 8 Estimat Glomerular Filtration Rate 83 Troponin I LESS THAN 0.02 Result Diagram: 08/26/17 1305 08/26/17 1305 Imaging Last Impressions Head CT 08/26/17 1322 Signed Impressions: Service Date/Time: August 15:06 - CONCLUSION: Tiny focus of decreased attenuation in the expected region of the anterior limb of the right internal capsule consistent with possible lacunar infarct of indeterminate age. Clinical correlation is recommended. Migue Goss MD Cervical Spine CT 08/26/17 0000 Signed Impressions: Service Date/Time: August 15:06 - CONCLUSION: 1. Small disc bulges at C4/5, C5/6 and C6/7. 2. No acute fracture or destructive lesion identified. MD Ki Barksdale VTE Risk Assessment Caprini VTE Risk Assessment: Mod/High Risk (score >= 2) Caprini Risk Assessment Model Point Value = 1 Point Value = 2 Point Value = 3 Point Value = 5 Age 41-60 Minor surgery BMI > 25 kg/m2 Swollen legs Varicose veins or History of unexplained or recurrent spontaneous Oral contraceptives or hormone replacement Sepsis (< 1 month) Serious lung disease, including pneumonia (< 1 month) Abnormal pulmonary function Acute myocardial infarction Congestive heart failure (< 1 month) History of inflammatory bowel disease Medical patient at bed rest Age 61-74 Arthroscopic surgery Major open surgery (> 45 min) Laparoscopic surgery (> 45 min) Malignancy Confined to bed (> 72 hours) Immobilizing plaster cast Central venous access Age >= 75 History of VTE Family history of VTE Factor V Leiden Prothrombin [id number] Lupus anticoagulant Anticardiolipin antibodies Elevated serum homocysteine Heparin-induced thrombocytopenia Other congenital or acquired thrombophilia Stroke (< 1 month) Elective arthroplasty Hip, pelvis, or leg fracture Acute spinal cord injury (< 1 month) Prophylaxis Regimen Total Risk Factor Score Risk Level Prophylaxis Regimen 0-1 Low Early ambulation 2 Moderate Order ONE of the following: *Sequential Compression Device (SCD) *Heparin 5000 units SQ BID 3-4 Higher Order ONE of the following medications: *Heparin 5000 units SQ TID *Enoxaparin/Lovenox 40 mg SQ daily (WT < 150 kg, CrCl > 30 mL/min) *Enoxaparin/Lovenox 30 mg SQ daily (WT < 150 kg, CrCl > 10-29 mL/min) *Enoxaparin/Lovenox 30 mg SQ BID (WT < 150 kg, CrCl > 30 mL/min) AND/OR *Sequential Compression Device (SCD) 5 or more Highest Order ONE of the following medications: *Heparin 5000 units SQ TID (Preferred with Epidurals) *Enoxaparin/Lovenox 40 mg SQ daily (WT < 150 kg, CrCl > 30 mL/min) *Enoxaparin/Lovenox 30 mg SQ daily (WT < 150 kg, CrCl > 10-29 mL/min) *Enoxaparin/Lovenox 30 mg SQ BID (WT < 150 kg, CrCl > 30 mL/min) AND *Sequential Compression Device (SCD) Assessment and Plan Problem List: (1) Diabetes mellitus type 2, uncomplicated ICD Code: E11.9 - Type 2 diabetes mellitus without complications Status: Acute (2) Paresthesia and pain of right extremity ICD Code: M79.609 - Pain in unspecified limb; R20.2 - Paresthesia of skin Status: Acute (3) CVA (cerebral vascular accident) ICD Code: I63.9 - Cerebral infarction, unspecified Status: Acute (4) Low serum vitamin D ICD Code: R79.89 - Other specified abnormal findings of blood chemistry Status: Acute Assessment and Plan Patient is a 52-year-old -[place] male with primary medical history of diabetes, HLD, vitamin D deficiency, obesity, BPH who came into the hospital for complaints of right arm, face, head numbness and tingling. CVA -Complaints of numbness and tingling right arm, face, lips -CT of the head showed tiny focus of decreased attenuation in the expected region of the anterior limb of the right internal capsule consistent with possible lacunar infarct of indeterminate age. -Cervical spine CT showed 1. Small disc bulges at C4-C5, C5-C6 and C6-C7. 2. No acute fracture or destructive lesion identified -Brain MRI showed 1. Small area of abnormal diffusion restricted signal involving the left basal ganglia consistent with an area of lacunar infarct -Brain MRA pending follow-up results -EKG reviewed sinus rhythm with first-degree AV block with nonspecific T- wave abnormality, heart rate in the 66 -Previous stress tests 10/04/16 unremarkable -Consult neurology for further evaluation recommendation -Patient was given aspirin 325 mg in the ED -Start antiplatelet therapy -Check carotid ultrasound, 2D echocardiogram -Neurochecks Q4 -Permissive hypertension -PT/OT evaluate Hyperlipidemia -On ezetimibe and outpatient will continue -Check lipid profile. Patient may need to start statin medication DM 2 -Hold home dose metformin for now -Insulin sliding scale. -Check hemoglobin A1c. Monitor Accu-Cheks. DVT prop Lovenox Code Status Full Code Discussed Condition With Patient, nursing Physician Certification 2 Midnight Certification Type: Admission for Inpatient Services Order for Inpatient Services The services are ordered in accordance with Medicare regulations or non- Medicare payer requirements, as applicable. In the case of services not specified as inpatient-only, they are appropriately provided as inpatient services in accordance with the 2-midnight benchmark. Estimated LOS (days): 2 days is the estimated time the patient will need to remain in the hospital, assuming treatment plan goals are met and no additional complications. Post-Hospital Plan: Home Problem Qualifiers (1) Diabetes mellitus type 2, uncomplicated: Qualified Codes: E11.9 - Type 2 diabetes mellitus without complications (2) CVA (cerebral vascular accident): Qualified Codes: I63.9 - Cerebral infarction, unspecified Lesvia Marcus Aug 26, 2017 16:52
--- NOTE | 2017-08-26 17:42 | RADRPT ---
EXAM DATE/TIME: 08/26/2017 16:54 [facility] COMPARISON: No previous studies available for comparison. INDICATIONS : CVA. Right sided weakness. MEDICAL HISTORY : Diabetes mellitus type 2. SURGICAL HISTORY : Appendectomy. Removal of scrotal hematoma. ENCOUNTER: Initial ACUITY: 3 day PAIN SCORE: 0/10 LOCATION: Head. TECHNIQUE: Multiplanar, multisequence MRI of the brain was performed without contrast. FINDINGS: Axial diffusion restriction images demonstrate a punctate area of abnormal signal within the left bas al ganglia. This would be consistent with an area of lacunar infarct. The ventricles are normal in size and configuration. The sulci and gyri are intact. There are mild mi crovascular ischemic the mild negative changes in the periventricular white matter. No mass lesion is identified. The posterior fossa is normal in appearance. The visualized portions of sinus and orbit demonstrate a mucus retention cyst in the anterior aspect of the right maxillary sinus. CONCLUSION: 1. Small area of abnormal diffusion restricted signal involving the left basal ganglia consistent wit h an area of lacunar infarct Joseph Yo MD on August 26, 2017 at 17:38 Board Certified Radiologist. This report was verified electronically.
--- NOTE | 2017-08-26 17:44 | RADRPT ---
EXAM DATE/TIME: 08/26/2017 16:54 [facility] COMPARISON: No previous studies available for comparison. INDICATIONS : CVA. Right sided weakness. MEDICAL HISTORY : Diabetes mellitus type 2. SURGICAL HISTORY : Appendectomy. Scrotal hematoma removed. ENCOUNTER: Initial ACUITY: 3 day PAIN SCORE: 0/10 LOCATION: Head. Please note a normal MRA of the brain does not entirely exclude the possibility of a small aneurysm, nor the possibility of distal intracranial vessel disease. TECHNIQUE: 3D time of flight MRA was performed. Source images, multiplanar STS MIP, and 3D volume MIP reconstru ctions were reviewed. FINDINGS: The distal internal carotid arteries are patent. The anterior and middle cerebral circulation on the right appears widely patent. The exam demonstrate s an area signal dropout in the distal M1 segment on the left. This is possibly artifactual however, it is concerning for embolic disease to this area. The right vertebral is diminutive in size. The basilar is widely patent. The posterior cerebral circu lation is unremarkable. CONCLUSION: 1. There is signal dropout involving the distal M1 segment on the left concerning for embolic disease . This could be further assessed with CT angiography if it is felt clinically warranted. Joseph Yo MD on August 26, 2017 at 17:40 Board Certified Radiologist. This report was verified electronically.
[2017-08-26] MEDS ORDERED: DEXTROSE 50% IN WATER 50 ML VIAL(D50) IV PUSH PRN (18:00)
[2017-08-26] MEDS ORDERED: GLUCAGON 1 MG/ML VIAL OTHER PRN (18:00)
--- NOTE | 2017-08-26 20:40 | RADRPT ---
EXAM DATE/TIME: 08/26/2017 19:41 [facility] COMPARISON: No previous studies available for comparison. INDICATIONS : Cerebrovascular accident. MEDICAL HISTORY : Hypercholesterolemia. Diabetes. SURGICAL HISTORY : Appendectomy. Scrotal hematoma surgery. ENCOUNTER: Initial ACUITY: 1 day PAIN SCORE: 0/10 LOCATION: Bilateral neck PEAK SYSTOLIC VELOCITIES (cm/sec): ICA/CCA RATIO: Right: 0.9 Left: 0.7 ICA: Right: 68 Left: 61 CCA: Right: 77 Left: 83 ECA: Right: 77 Left: 63 VERTEBRAL: Right: 34 antegrade Left: 63 antegrade Elevated flow velocities and ICA/CCA ratios have been found to correlate with increased degrees of vessel stenosis, calculated as percentage of diameter relative to a normal segment of distal ICA/CCA FINDINGS: RIGHT CAROTID: No significant stenosis is visualized. The waveforms are within normal limits. LEFT CAROTID: No significant stenosis is visualized. The waveforms are within normal limits. VERTEBRAL ARTERIES: Antegrade flow is seen in both vertebral arteries. MISCELLANEOUS: None. CONCLUSION: Within normal limits. No significant plaque or narrowing on either side. Kem Ornelas MD on August 26, 2017 at 20:37 Board Certified Radiologist. This report was verified electronically.
[2017-08-26 20:55] LABS: CHOLESTEROL 264 MG/DL (120-200); TRIGLYCERIDES 242 MG/DL (42-150)
[2017-08-26 20:57] LABS: CHOLESTEROL/ HDL RATIO 7.78 RATIO; HDL CHOLESTEROL 33.9 MG/DL (40.0-60.0); LDL CHOLESTEROL 182 MG/DL (0-99)
[2017-08-26 22:32] LABS: HEMOGLOBIN A1C 10.9 % (4.3-6.0)
[2017-08-26] MEDS: SODIUM CHLORIDE 0.9% FLUSH 10 ML FLUSH IV FLUSH SCH (23:41)
[2017-08-26] MEDS: INSULIN ASPART SUPPLEMENTAL SCALE SQ SCH (23:41)
[2017-08-27] VITALS (10 sets, daily range): BP systolic 128–162; BP diastolic 70–91; PULSE 65–81; RESP 17–18; TEMP 97.7–98.7; O2SAT 97–100
[2017-08-27 07:42] LABS: AUTOMATED NEUTROPHIL # 4.9 TH/MM3 (1.8-7.7); BASOPHIL % 0.3 % (0.0-2.0); EOSINOPHIL % 0.4 % (0.0-4.0); HEMATOCRIT 42.7 % (39.0-51.0); HEMOGLOBIN 14.5 GM/DL (13.0-17.0); LYMPH % 34.8 % (9.0-44.0); LYMPHOCYTE # 2.9 TH/MM3 (1.0-4.8); MEAN CELL VOLUME 79.9 FL (80.0-100.0); MEAN CORPUSCULAR HEMOGLOBIN 27.2 PG (27.0-34.0); MONO % 5.2 % (0.0-8.0); MONOCYTE # 0.4 TH/MM3 (0-0.9); NEUT % 59.3 % (16.0-70.0); PLATELET COUNT 192 TH/MM3 (150-450); RED BLOOD COUNT 5.34 MIL/MM3 (4.50-5.90); WHITE BLOOD COUNT 8.3 TH/MM3 (4.0-11.0)
[2017-08-27] MEDS: EZETIMIBE 10 MG TAB PO SCH (07:42)
[2017-08-27] MEDS: SODIUM CHLORIDE 0.9% FLUSH 10 ML FLUSH IV FLUSH SCH ×2 (07:43→21:00)
[2017-08-27] MEDS: INSULIN ASPART SUPPLEMENTAL SCALE SQ SCH ×4 (07:44→21:05)
[2017-08-27 08:12] LABS: ALKALINE PHOSPHATASE 82 U/L (45-117); ALT (GPT) 71 U/L (12-78); TOTAL BILIRUBIN ADULT 0.4 MG/DL (0.2-1.0); TOTAL PROTEIN 7.7 GM/DL (6.4-8.2)
[2017-08-27 08:15] LABS: ALBUMIN 3.4 GM/DL (3.4-5.0); AST (GOT) 31 U/L (15-37); BICARBONATE 23.9 MEQ/L (21.0-32.0); BLOOD UREA NITROGEN 10 MG/DL (7-18); CALCIUM 9.2 MG/DL (8.5-10.1); CHLORIDE 98 MEQ/L (98-107); CREATININE 0.98 MG/DL (0.60-1.30); GLOMERULAR FILTRATION RATE 98 ML/MIN (>89); GLUCOSE,RANDOM 259 MG/DL (74-106); SODIUM (NA) 132 MEQ/L (136-145)
[2017-08-27] MEDS ORDERED: ASPIRIN 81 MG CHEW TAB CHEW SCH (09:00)
[2017-08-27] MEDS ORDERED: ATORVASTATIN 40 MG TAB PO SCH (09:00)
[2017-08-27] MEDS ORDERED: INSULIN DETEMIR 100 UNITS/ML VIAL SQ SCH (12:00)
--- NOTE | 2017-08-27 14:18 | ECHRPT ---
Indication: CVA/TIA CONCLUSIONS Normal left ventricular size and wall thickness. The left ventricular systolic function is normal wi th an estimated ejection fraction in the range of 60-65%. Normal wall motion. Structurally normal mitral valve. Trace mitral valve regurgitation. BP: 191 / 118 HR: 81 Rhythm: MEASUREMENTS (Male / Female) Normal Values Technical Quality:Good 2D ECHO LV Diastolic Diameter PLAX 4.3 cm 4.2 - 5.9 / 3.9 - 5.3 cm LV Systolic Diameter PLAX 3.3 cm IVS Diastolic Thickness 1.2 cm 0.6 - 1.0 / 0.6 - 0.9 cm LVPW Diastolic Thickness 0.9 cm 0.6 - 1.0 / 0.6 - 0.9 cm LV Relative Wall Thickness 0.5 RV Internal Dim ED PLAX 2.2 cm LA Systolic Diameter LX 4.1 cm 3.0 - 4.0 / 2.7 - 3.8 cm DOPPLER Mitral E Point Velocity 65.2 cm/s Mitral A Point Velocity 53.8 cm/s Mitral E to A Ratio 1.2 TR Peak Velocity 197.0 cm/s TR Peak Gradient 15.5 mmHg FINDINGS LEFT VENTRICLE Normal left ventricular size and wall thickness. The left ventricular systolic function is normal wi th an estimated ejection fraction in the range of 60-65%. Normal wall motion. RIGHT VENTRICLE Normal right ventricular size and systolic function. LEFT ATRIUM The left atrial size is normal. RIGHT ATRIUM The right atrial size is normal. ATRIAL SEPTUM Normal atrial septal thickness without atrial level shunting by limited color doppler interrogation. AORTA The aortic root and proximal ascending aorta are normal in size on limited imaging. MITRAL VALVE Structurally normal mitral valve. Trace mitral valve regurgitation. AORTIC VALVE Trileaflet aortic valve. No aortic valve stenosis or regurgitation. TRICUSPID VALVE Structurally normal tricuspid valve. No tricuspid valve stenosis or regurgitation. PULMONARY VALVE The pulmonary valve is not well visualized. VESSELS The inferior vena cava is normal in size. PERICARDIUM No pericardial effusion. Edy Georges MD (Electronically Signed) Final Date:27 August 2017 14:18
--- NOTE | 2017-08-27 14:22 | EKG ---
Date Performed: 08/26/2017 Time Performed: 13:42:26 PTAGE: 52 years EKG: Sinus rhythm WITH FIRST DEGREE AV BLOCK NONSPECIFIC T-WAVE ABNORMALITY ABNORMAL ECG PREVIOUS TRACING : 10/04/2016 06.25 Poor R-wave progression, but no change from prior tracing. DOCTOR: Minesh Anderson Interpretating Date/Time 08/27/2017 14:21:32
--- NOTE | 2017-08-27 14:42 | PD.CONS ---
History of Present Illness Service Neurology Consult Requested By medical Reason for Consult stroke Primary Care Physician Ariana Rodas MD History of Present Illness 52-year-old aam admitted for rt facial/arm numbness. not on any blood thinners. no hx of tia/stroke. feels better. denies any focal weakness. asking if he can go home. followed in the [facility]. hba1c 10. moderately elevated lipids. Brain MRI showed 1. Small area of abnormal diffusion restricted signal involving the left basal ganglia consistent with an area of lacunar infarct Review of Systems Except as stated in HPI: all other systems reviewed are Neg Past Family Social History Past Medical History DM 2 HLD BPH Past Surgical History Appendectomy Scrotal hematoma surgery Allergies: Coded Allergies: butalbital (Unverified Adverse Reaction, Severe, hallucinating, severe weakness, 08/26/17) Uncoded Allergies: BYDUREON (Adverse Reaction, Severe, MUSCLE SPASMS, 07/02/15) Family History Family history of CVA maternal grandfather. Diabetes in the family including siblings. 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 No Alcohol No Tobacco No Illicit Drug Use Review of Systems All other ROS: ROS reviewed as documented in chart Past Family Social History Allergies: Coded Allergies: butalbital (Unverified Adverse Reaction, Severe, hallucinating, severe weakness, 08/26/17) Uncoded Allergies: BYDUREON (Adverse Reaction, Severe, MUSCLE SPASMS, 07/02/15) Active Ordered Medications Current Medications Medications (Trade) Dose Ordered Sig/Ana Route Start Time Stop Time Status Last Admin (NS Flush) 2 ml UNSCH PRN IV FLUSH 08/26/17 16:15 (NS Flush) 2 ml BID IV FLUSH 08/26/17 21:00 08/27/17 07:43 (Tylenol) 650 mg Q4H PRN PO 08/26/17 16:15 (Zofran Inj) 4 mg Q6H PRN IVP 08/26/17 16:15 (Tylenol) 650 mg Q6H PRN PO 08/26/17 16:15 ([place] 5-325 Mg) 1 tab Q4H PRN PO 08/26/17 16:15 (Narcan Inj) 0.4 mg UNSCH PRN IV PUSH 08/26/17 16:15 (Milk Of Magnesia Liq) 30 ml Q12H PRN PO 08/26/17 16:15 (D50w (Vial) Inj) 50 ml UNSCH PRN IV PUSH 08/26/17 18:00 (Glucagon Inj) 1 mg UNSCH PRN OTHER 08/26/17 18:00 (NovoLOG SUPPLEMENTAL SCALE) 1 ACHS SLIDING SCALE SQ 08/26/17 21:00 08/27/17 12:09 (Zetia) 10 mg DAILY PO 08/27/17 09:00 08/27/17 07:42 (Levemir Inj) 8 units Q12HR SQ 08/27/17 21:00 Sodium Chloride 1,000 ml @ 75 mls/hr [id number] IV 08/27/17 14:30 UNV (Aspirin Chew) 325 mg DAILY CHEW 08/28/17 09:00 UNV (Plavix) 75 mg DAILY PO 08/27/17 14:30 UNV (Lipitor) 80 mg DAILY PO 08/28/17 09:00 UNV Exam I&O / VS Vital Signs Date Time Temp Pulse Resp B/P (MAP) Pulse Ox O2 Delivery O2 Flow Rate FiO2 08/27/17 14:17 73 08/27/17 11:54 98.2 75 18 128/74 (92) 99 08/27/17 10:11 65 08/27/17 07:47 97.7 68 18 149/91 (110) 99 08/27/17 05:29 97.7 72 17 150/72 (98) 98 08/27/17 04:00 67 08/27/17 00:06 97.9 75 17 162/82 (108) 100 08/27/17 00:00 66 08/26/17 21:40 75 08/26/17 20:32 98.7 81 17 165/98 (120) 98 08/26/17 18:58 97.6 65 18 191/118 (142) 99 08/26/17 18:49 100 08/26/17 18:00 68 18 140/90 (107) 98 Room Air 08/26/17 17:00 69 18 133/75 (94) 100 Room Air 08/26/17 16:00 76 18 140/90 (107) 100 Room Air 08/26/17 15:00 72 21 133/76 (95) 99 General: Alert and Oriented, No acute distress Eye: EOMI Respiratory: Non-labored respirations Cardiology: Normal rate Musculoskeletal: ROM Neurologic: Alert, Oriented, Normal motor Psychiatric: Cooperative, Appropriate mood & affect, Normal judgement Exam Comments ox 3, follows, articulate, eomi, vff, minimal reduced rt nlf, eomi, vff, no drift, no dystaxia, ambulating stable Review/Management Diagnosis/Plan: (1) Acute ischemic left MCA stroke ICD Codes: I63.512 - Cerebral infarction due to unspecified occlusion or stenosis of left middle cerebral artery Status: Acute Plan: concern for distal m1 occlusion possible artery to artery embolic vs thrombotic vessel with 2/2 occlusion poorly controlled dm, hld recs aspirin/plavix d/c aspirin in 2-3 months check cta's wt loss/exercise/ldl <70, dm/bp control suggest cardio evel for jamal/event monitor- he wants to do this outpatient with his 's business solutions analyst suggest heme eval if recurrent event despite risk factor reduction to r/o hypercoag state d/w pt/spouse, answered their questions (2) HLD (hyperlipidemia) ICD Codes: E78.5 - Hyperlipidemia, unspecified Status: Chronic Plan: poorly controlled. statin (3) Diabetes mellitus type 2, uncomplicated ICD Codes: E11.9 - Type 2 diabetes mellitus without complications Status: Chronic Plan: poorly controlled. needs better control/compliance Problem Qualifiers (1) Diabetes mellitus type 2, uncomplicated: Qualified Codes: E11.9 - Type 2 diabetes mellitus without complications Ameya Awad MD Aug 27, 2017 14:42
[2017-08-27] MEDS: SODIUM CHLOR 0.9% 1000 ML INJ 1,000 ML IV SCH (15:24)
[2017-08-27] MEDS: CLOPIDOGREL 75 MG TAB PO SCH (15:24)
[2017-08-27] MEDS ORDERED: IOHEXOL 350 MG/ML 10 ML VIAL (for RAD DIAG) IVCONTRAST ONE (20:49)
[2017-08-27] MEDS: INSULIN DETEMIR 100 UNITS/ML VIAL SQ SCH (21:05)
--- NOTE | 2017-08-27 23:19 | RADRPT ---
EXAM DATE/TIME: 08/27/2017 20:44 [facility] COMPARISON: CT BRAIN W/O CONTRAST, August 26, 2017, 15:06. MRA BRAIN W/O CONTRAST, August 26, 2017, 16:54. INDICATIONS : Right sided weakness. IV CONTRAST: 75 cc Omnipaque 350 (iohexol) IV ; Cumulative dose for multiple exams. RADIATION DOSE: 10.74 CTDIvol (mGy) ; Combined studies MEDICAL HISTORY : Cardiovascular disease. Diabetes mellitus type 2. SURGICAL HISTORY : None. ENCOUNTER: Subsequent ACUITY: 1 day PAIN SCALE: 0/10 LOCATION: cranial TECHNIQUE: Volumetric scanning was performed using a multi-row detector CT scanner. The data was post processed with a variety of visualization algorithms including full volume maximum intensity projection, multi -planar sliding thin slab reformation, curved planar reformation, and surface rendering techniques. Using automated exposure control and adjustment of the mA and/or kV according to patient size, radiat ion dose was kept as low as reasonably achievable to obtain optimal diagnostic quality images. DICO M format image data is available electronically for review and comparison. FINDINGS: A fusiform shaped aneurysm is seen of the distal left M1 segment, measures approximately 6 x 4 x 3 mm in size, series 3 a 2 image 14 and series 303 image 32. There is potentially a 3 mm aneurysm in a si milar location on the right, series 2 image 106. Mild diffuse vessel luminal irregularity typical of intracranial atherosclerosis. No stenotic lesions or acute thrombosis. CONCLUSION: 1. 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 Probably a 3 mm aneurysm in a similar location on the right. 2. No significant stenoses. No evidence of vessel thrombosis. Kem Ornelas MD on August 27, 2017 at 23:12 Board Certified Radiologist. This report was verified electronically.
--- NOTE | 2017-08-27 23:21 | RADRPT ---
EXAM DATE/TIME: 08/27/2017 20:44 [facility] COMPARISON: No previous studies available for comparison. INDICATIONS : Right sided weakness. IV CONTRAST: 75 cc Omnipaque 350 (iohexol) IV ; Cumulative dose for multiple exams. RADIATION DOSE: 10.74 CTDIvol (mGy) ; Combined studies MEDICAL HISTORY : Cardiovascular disease. Diabetes mellitus type 2. SURGICAL HISTORY : None. ENCOUNTER: Subsequent ACUITY: 1 day PAIN SCALE: 0/10 LOCATION: neck Elevated flow velocities and ICA/CCA ratios have been found to correlate with increased degrees of vessel stenosis, calculated as percentage of diameter relative to a normal segment of distal ICA/CCA. TECHNIQUE: Volumetric scanning was performed using a multirow detector CT scanner. The data was post processed with a variety of visualization algorithms including full-volume maximum intensity projection, multip lanar sliding thin-slab reformation, curved-planar reformation, and surface-rendering techniques. Us ing automated exposure control and adjustment of the mA and/or kV according to patient size, radiatio n dose was kept as low as reasonably achievable to obtain optimal diagnostic quality images. DICOM f ormat image data is available electronically for review and comparison. FINDINGS: AORTIC ARCH: There is a three-vessel origin of the great vessels from the aorta. No evidence of ostial narrowing. RIGHT CAROTID: The common carotid artery is intact. The carotid bulb has a normal configuration without ulceration o r narrowing. The internal carotid artery lumen is smooth without stenosis. The external carotid ifrah ry is intact. LEFT CAROTID: The common carotid artery is intact. The carotid bulb has a normal configuration without ulceration or narrowing. The internal carotid artery lumen is smooth without stenosis. The external carotid ar krzysztof is intact. VERTEBRALS: Left vertebral artery mildly dominant. No stenotic lesions are seen. There are nonspecific submandibular and submental lymph nodes measuring up to 14 mm in size. CONCLUSION: Widely patent carotids and vertebral arteries. Kem Ornelas MD on August 27, 2017 at 23:19 Board Certified Radiologist. This report was verified electronically.
--- NOTE | 2017-08-27 23:53 | HHI.PR ---
Subjective Remarks Patient seen this morning around 10 AM. He reports that weakness is improving. Denies any chest pain or shortness breath. Objective Vital Signs Date Time Temp Pulse Resp B/P (MAP) Pulse Ox O2 Delivery O2 Flow Rate FiO2 08/27/17 16:00 98.0 81 18 138/70 (92) 98 08/27/17 14:17 73 08/27/17 11:54 98.2 75 18 128/74 (92) 99 08/27/17 10:11 65 08/27/17 07:47 97.7 68 18 149/91 (110) 99 08/27/17 05:29 97.7 72 17 150/72 (98) 98 08/27/17 04:00 67 08/27/17 00:06 97.9 75 17 162/82 (108) 100 08/27/17 00:00 66 I/O 08/27/17 08/27/17 08/27/17 08/28/17 08/28/17 08/28/17 07:00 15:00 23:00 07:00 15:00 23:00 Intake Total 360 ml 129 ml Balance 360 ml 129 ml Intake Oral 360 ml IV Total 129 ml # Voids 5 Result Diagram: 08/27/17 0542 08/27/17 0542 Objective Remarks GENERAL: patient sitting up on edge bed. Appears comfortable SKIN: Warm and dry. HEAD: Normocephalic. EYES: No scleral icterus. No injection or drainage. NECK: Supple, trachea midline. No JVD or lymphadenopathy. CARDIOVASCULAR: Regular rate and rhythm without murmurs, gallops, or rubs. RESPIRATORY: Breath sounds equal bilaterally. No accessory muscle use. GASTROINTESTINAL: Abdomen soft, non-tender, nondistended. MUSCULOSKELETAL: No cyanosis, or edema. BACK: Nontender without obvious deformity. No CVA tenderness. A/P Assessment and Plan ======08/27========= A1c 10.9. Discussed poor controlled diabetes with patient. He will need insulin. Ordered ready mix truck driver consult. Further imaging as per neurology.continue antiplatelet and statin as per neurology. =- Patient is a 52-year-old -[place] male with primary medical history of diabetes, HLD, vitamin D deficiency, obesity, BPH who came into the hospital for complaints of right arm, face, head numbness and tingling. CVA -Complaints of numbness and tingling right arm, face, lips -CT of the head showed tiny focus of decreased attenuation in the expected region of the anterior limb of the right internal capsule consistent with possible lacunar infarct of indeterminate age. -Cervical spine CT showed 1. Small disc bulges at C4-C5, C5-C6 and C6-C7. 2. No acute fracture or destructive lesion identified -Brain MRI showed 1. Small area of abnormal diffusion restricted signal involving the left basal ganglia consistent with an area of lacunar infarct -Brain MRA pending follow-up results -EKG reviewed sinus rhythm with first-degree AV block with nonspecific T- wave abnormality, heart rate in the 66 -Previous stress tests 10/04/16 unremarkable -Consult neurology for further evaluation recommendation -Patient was given aspirin 325 mg in the ED -Start antiplatelet therapy -Check carotid ultrasound, 2D echocardiogram -Neurochecks Q4 -Permissive hypertension -PT/OT evaluate Hyperlipidemia -On ezetimibe and outpatient will continue -Check lipid profile. Patient may need to start statin medication DM 2 -Hold home dose metformin for now -Insulin sliding scale. -Check hemoglobin A1c. Monitor Accu-Cheks. DVT prop Lovenox Discharge Planning pending neurology clearance. Fahad Honeycutt MD Aug 27, 2017 23:53
[2017-08-28] VITALS (10 sets, daily range): BP systolic 114–137; BP diastolic 69–85; PULSE 59–92; RESP 16–20; TEMP 97.3–97.9; O2SAT 95–100
[2017-08-28] MEDS: SODIUM CHLOR 0.9% 1000 ML INJ 1,000 ML IV SCH ×2 (01:35→16:53)
[2017-08-28] MEDS: SODIUM CHLORIDE 0.9% FLUSH 10 ML FLUSH IV FLUSH SCH ×2 (07:36→20:50)
[2017-08-28] MEDS: ASPIRIN 325 MG TAB PO SCH (07:38)
[2017-08-28] MEDS: EZETIMIBE 10 MG TAB PO SCH (07:39)
[2017-08-28] MEDS: CLOPIDOGREL 75 MG TAB PO SCH (07:39)
[2017-08-28] MEDS: INSULIN ASPART SUPPLEMENTAL SCALE SQ SCH ×4 (07:41→21:16)
[2017-08-28] MEDS: ATORVASTATIN 80 MG TAB PO SCH (07:42)
[2017-08-28] MEDS: INSULIN DETEMIR 100 UNITS/ML VIAL SQ SCH ×2 (07:44→21:16)
--- NOTE | 2017-08-28 10:45 | HHI.PR ---
Subjective Remarks Patient says he is feeling well. Denies any chest pain shortness of breath. Reports that weakness has resolved. Objective Vital Signs Date Time Temp Pulse Resp B/P (MAP) Pulse Ox O2 Delivery O2 Flow Rate FiO2 08/28/17 09:49 59 08/28/17 08:50 97.5 62 16 114/69 (84) 95 08/28/17 04:00 97.9 63 20 120/80 (93) 100 08/28/17 04:00 62 08/28/17 00:00 97.8 72 18 130/85 (100) 100 08/28/17 00:00 64 08/27/17 20:00 98.7 78 18 147/80 (102) 97 08/27/17 20:00 77 08/27/17 16:00 98.0 81 18 138/70 (92) 98 08/27/17 14:17 73 08/27/17 11:54 98.2 75 18 128/74 (92) 99 I/O 08/27/17 08/27/17 08/27/17 08/28/17 08/28/17 08/28/17 07:00 15:00 23:00 07:00 15:00 23:00 Intake Total 360 ml 129 ml 859 ml Balance 360 ml 129 ml 859 ml Intake Oral 360 ml IV Total 129 ml 859 ml # Voids 5 2 # Bowel Movements 0 Result Diagram: 08/27/17 0542 08/27/17 0542 Objective Remarks GENERAL: patient sitting up on edge bed. Appears comfortable.alert and oriented 4. SKIN: Warm and dry. HEAD: Normocephalic. EYES: No scleral icterus. No injection or drainage. NECK: Supple, trachea midline. No JVD. CARDIOVASCULAR: Regular rate and rhythm without murmurs, gallops, or rubs. RESPIRATORY: Breath sounds equal bilaterally. No accessory muscle use. GASTROINTESTINAL: Abdomen soft, non-tender, nondistended. MUSCULOSKELETAL: No cyanosis, or edema. BACK: Nontender without obvious deformity. No CVA tenderness. A/P Assessment and Plan ======08/28========= Discussed with neurology. Due to aneurysm seen on imaging, will consult neurosurgery. Diabetes much better controlled with blood sugars in the 200s. Will check lunchtime glucose and adjust scale as necessary. =- Patient is a 52-year-old -[place] male with primary medical history of diabetes, HLD, vitamin D deficiency, obesity, BPH who came into the hospital for complaints of right arm, face, head numbness and tingling. //CVA -Complaints of numbness and tingling right arm, face, lips -CT of the head showed tiny focus of decreased attenuation in the expected region of the anterior limb of the right internal capsule consistent with possible lacunar infarct of indeterminate age. -Cervical spine CT showed 1. Small disc bulges at C4-C5, C5-C6 and C6-C7. 2. No acute fracture or destructive lesion identified -Brain MRI showed 1. Small area of abnormal diffusion restricted signal involving the left basal ganglia consistent with an area of //lacunar infarct -Brain MRA pending follow-up results -EKG reviewed sinus rhythm with first-degree AV block with nonspecific T- wave abnormality, heart rate in the 66 -Previous stress tests 10/04/16 unremarkable -Consult neurology for further evaluation recommendation -Patient was given aspirin 325 mg in the ED -Start antiplatelet therapy -Check carotid ultrasound, 2D echocardiogram -NeurocMegaBitscks Q4 -Permissive hypertension -PT/OT evaluate //Hyperlipidemia -On ezetimibe and outpatient will continue -Check lipid profile. Patient may need to start statin medication //DM 2 -Hold home dose metformin for now -Insulin sliding scale. -Check hemoglobin A1c. Monitor Accu-Cheks. 08/27 A1c 10.9. Discussed poor controlled diabetes with patient. He will need insulin. Ordered certified adapted physical educator consult. DVT prop Lovenox Discharge Planning pending neurology clearance. Fahad Honeycutt MD Aug 28, 2017 10:45
--- NOTE | 2017-08-28 12:24 | HHI.PR ---
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 IR/nsx eval to establish signs/symptoms d/w pt to look out for (3) HLD (hyperlipidemia) ICD Codes: E78.5 - Hyperlipidemia, unspecified Status: Chronic Plan: poorly controlled. statin (4) Diabetes mellitus type 2, uncomplicated ICD Codes: E11.9 - Type 2 diabetes mellitus without complications Status: Chronic Plan: poorly controlled. needs better control/compliance Subjective Subjective Comments No acute events reported No headache No chest pain No dyspnea Active Medications Current Medications Medications (Trade) Dose Ordered Sig/Ana Route Start Time Stop Time Status Last Admin (NS Flush) 2 ml UNSCH PRN IV FLUSH 08/26/17 16:15 (NS Flush) 2 ml BID IV FLUSH 08/26/17 21:00 08/27/17 07:43 (Tylenol) 650 mg Q4H PRN PO 08/26/17 16:15 (Zofran Inj) 4 mg Q6H PRN IVP 08/26/17 16:15 (Tylenol) 650 mg Q6H PRN PO 08/26/17 16:15 ([place] 5-325 Mg) 1 tab Q4H PRN PO 08/26/17 16:15 (Narcan Inj) 0.4 mg UNSCH PRN IV PUSH 08/26/17 16:15 (Milk Of Magnesia Liq) 30 ml Q12H PRN PO 08/26/17 16:15 (D50w (Vial) Inj) 50 ml UNSCH PRN IV PUSH 3/15/18 18:00 (Glucagon Inj) 1 mg UNSCH PRN OTHER 08/26/17 18:00 (NovoLOG SUPPLEMENTAL SCALE) 1 ACHS SLIDING SCALE SQ 08/26/17 21:00 08/28/17 11:57 (Zetia) 10 mg DAILY PO 08/27/17 09:00 08/28/17 07:39 (Levemir Inj) 8 units Q12HR SQ 08/27/17 21:00 08/28/17 07:44 Sodium Chloride 1,000 ml @ 75 mls/hr [id number] IV 08/27/17 15:00 08/28/17 01:35 (Aspirin) 325 mg DAILY PO 08/28/17 09:00 08/28/17 07:38 (Plavix) 75 mg DAILY PO 08/27/17 15:00 08/28/17 07:39 (Lipitor) 80 mg DAILY PO 08/28/17 09:00 Allergies Allergies Coded Allergies butalbital (Unverified Adverse Reaction, Severe, hallucinating, severe weakness, 08/26/17) Uncoded Allergies BYDUREON ( Adverse Reaction, Severe, MUSCLE SPASMS, 07/02/15) Review of Systems All other ROS: ROS reviewed as documented in chart Exam I&O / VS Vital Signs Date Time Temp Pulse Resp B/P (MAP) Pulse Ox O2 Delivery O2 Flow Rate FiO2 08/28/17 09:49 59 08/28/17 08:50 97.5 62 16 114/69 (84) 95 08/28/17 04:00 97.9 63 20 120/80 (93) 100 08/28/17 04:00 62 08/28/17 00:00 97.8 72 18 130/85 (100) 100 08/28/17 00:00 64 08/27/17 20:00 98.7 78 18 147/80 (102) 97 08/27/17 20:00 77 08/27/17 16:00 98.0 81 18 138/70 (92) 98 08/27/17 14:17 73 General: Alert and Oriented, No acute distress Eye: EOMI Respiratory: Non-labored respirations Cardiology: Normal rate Musculoskeletal: ROM Neurologic: Alert, Oriented, Normal motor Psychiatric: Cooperative, Appropriate mood & affect, Normal judgement Exam Comments ox 3, follows, articulate, eomi, vff, minimal reduced rt nlf, eomi, vff, no drift, no dystaxia, ambulating stable Problem Qualifiers (1) Diabetes mellitus type 2, uncomplicated: Qualified Codes: E11.9 - Type 2 diabetes mellitus without complications Ameya Awad MD Aug 28, 2017 12:24
--- NOTE | 2017-08-28 23:34 | PD.CONS ---
History of Present Illness Service Neurosurgery Consult Requested By Neurology Reason for Consult Aneurysm Primary Care Physician Ariana Rodas MD Diagnoses: History of Present Illness 52-year-old male states that in the past 5-7 days he has felt unusual sensation in his right upper extremity. 08/25/17 he noted increasing numbness in the right upper extremity with paresthesias in the face and right arm. No definite weakness. No significant headache. No neck pain. Initial CT scan head with possible decreased attenuation right internal capsule. Subsequent MRI has revealed small area restricted diffusion left basal ganglia consistent with lacunar infarct. He has a history of diabetes, hyperlipidemia. Review of Systems Constitutional: DENIES: Fatigue, Fever Eyes: DENIES: Blurred vision, Diplopia Ears, nose, mouth, throat: DENIES: Hearing loss, Vertigo Respiratory: DENIES: Shortness of breath Cardiovascular: DENIES: Palpitations Gastrointestinal: DENIES: Abdominal pain, Nausea, Vomiting Musculoskeletal: DENIES: Joint pain, Muscle aches, Back pain, Neck pain Past Family Social History Allergies: Coded Allergies: butalbital (Unverified Adverse Reaction, Severe, hallucinating, severe weakness, 08/26/17) Uncoded Allergies: BYDUREON (Adverse Reaction, Severe, MUSCLE SPASMS, 07/02/15) Past Medical History Diabetes Dyslipidemia Past Surgical History Appendectomy Reported Medications Reported Meds & Active Scripts Active Montelukast (Montelukast Sodium) 10 Mg Tab 10 Mg PO HS Reported Ezetimibe 10 Mg Tab 10 Mg PO DAILY Cialis (Tadalafil) 5 Mg Tab 5 Mg PO DAILY Do not exceed 1 dose/day. Vitamin D3 (Cholecalciferol) 50,000 Unit Cap 50,000 Units PO Q7D Glucophage (Metformin HCl) 1,000 Mg Tab 1,000 Mg PO BIDPC With a meal Family History His grandfather had a CVA. Multiple family members with diabetes Social History No tobacco or alcohol use Physical Exam Vital Signs Vital Signs Date Time Temp Pulse Resp B/P (MAP) Pulse Ox O2 Delivery O2 Flow Rate FiO2 08/28/17 21:26 97.4 74 18 135/79 (97) 98 08/28/17 16:16 97.4 68 19 137/85 (102) 100 08/28/17 15:21 66 08/28/17 12:52 97.3 71 18 133/71 (91) 99 08/28/17 09:49 59 08/28/17 08:50 97.5 62 16 114/69 (84) 95 08/28/17 04:00 97.9 63 20 120/80 (93) 100 08/28/17 04:00 62 08/28/17 00:00 97.8 72 18 130/85 (100) 100 08/28/17 00:00 64 Physical Exam GENERAL: This is a well-nourished, well-developed patient, in no apparent distress. SKIN: No rashes, ecchymoses or lesions. Cool and dry. HEAD: Atraumatic. Normocephalic. No temporal or scalp tenderness. GENERAL: This is a well-nourished, well-developed patient, no apparent distress. SKIN: No abrasions, contusion, rash noted. Skin warm and dry. HEAD: Atraumatic. Normocephalic. No temporal or scalp tenderness. EYES: Sclerae are clear and nonicteric ENT: No facial edema or ecchymosis. No periorbital edema. No CSF otorrhea or rhinorrhea. No palpable facial fracture or deformity. NECK: Trachea midline. No cervical spine tenderness. CARDIOVASCULAR: Regular pulse RESPIRATORY: Clear nonlabored GASTROINTESTINAL: Abdomen soft, non-tender, nondistended. No hepato-splenomegaly , or palpable masses. No guarding. MUSCULOSKELETAL: Extremities without cyanosis, or edema. No joint tenderness, or edema noted. No calf tenderness. Dorsalis pedis pulses 2+ bilateral NEUROLOGICAL: Awake and alert Oriented X 3 Speech is clear Conversant and appropriate Follow simple commands well Answers questions appropriately Reasonable judgment and insight Recent and remote memory are intact No evidence of anxiety or depression Pupils are equal and reactive to accommodation. Extra-ocular movements, visual kendall to confrontation, palate, sternocleidomastoid testing, hearing to finger rub testing, and bilateral shoulder shrug are all intact. Mild paresthesias to light touch right face. Tongue protrudes slightly to the right Sensation is intact to light touch in all extremities except complaining of mild numbness paresthesias right hand Strength normal major flexion and extension groups all extremities Gabriella's absent bilaterally No ankle clonus Plantar responses absent bilateral Fine motor movements intact upper extremities Result Diagram: 08/27/17 0542 08/27/17 0542 Imaging Last Impressions Neck CTA 08/27/17 0000 Signed Impressions: Service Date/Time: Sunday, August 27, 2017 20:44 - CONCLUSION: Widely patent carotids and vertebral arteries. Kem Ornelas MD Head CTA 08/27/17 Signed Impressions: Service Date/Time: Sunday, August 27, 2017 20:44 - CONCLUSION: 1. 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 Probably a 3 mm aneurysm in a similar location on the right. 2. No significant stenoses. No evidence of vessel thrombosis. Kem Ornelas MD Head CT 08/26/17 1322 Signed Impressions: Service Date/Time: August 15:06 - CONCLUSION: Tiny focus of decreased attenuation in the expected region of the anterior limb of the right internal capsule consistent with possible lacunar infarct of indeterminate age. Clinical correlation is recommended. Migue Goss MD Head Magnetic Resonance Angiography 08/26/17 Signed Impressions: Service Date/Time: August 16:54 - CONCLUSION: 1. There is signal dropout involving the distal M1 segment on the left concerning for embolic disease. This could be further assessed with CT angiography if it is felt clinically warranted. Joseph Yo MD Cervical Spine CT 08/26/17 0000 Signed Impressions: Service Date/Time: August 15:06 - CONCLUSION: 1. Small disc bulges at C4/5, C5/6 and C6/7. 2. No acute fracture or destructive lesion identified. Joseph Yo MD Carotid Artery Ultrasound 08/26/17 0000 Signed Impressions: Service Date/Time: August 19:41 - CONCLUSION: Within normal limits. No significant plaque or narrowing on either side. Kem Ornelas MD Brain MRI 08/26/17 0000 Signed Impressions: Service Date/Time: August 16:54 - CONCLUSION: 1. Small area of abnormal diffusion restricted signal involving the left basal ganglia consistent with an area of lacunar infarct Joseph Yo MD Assessment and Plan Assessment and Plan Impression: 1. Left passive ganglia lacunar infarction 2. Left MCA trifurcation fusiform aneurysm, approximately 6 x 4 x 3 mm. Possible small 3 mm right MCA aneurysm. Recommendations: Findings were discussed at length with the patient and his . Options of conservative treatment and observation versus intervention for the aneurysm had been discussed. Due to the morphology of the aneurysm and his risk factors for aneurysmal subarachnoid hemorrhage, evaluation at tertiary care center for consideration of treatment of the aneurysm is recommended. Discussed with neuroradiology, not felt to be candidate for intervention at this facility due to inability to coil the aneurysm. Surgical intervention not strictly indicated at this point. No evidence of aneurysmal subarachnoid hemorrhage. He presented extend all of the above and requests referral to [facility] or [facility] for evaluation. This will be scheduled through our office. Signs and symptoms to watch for discussed Malcolm Mata MD Aug 28, 2017 23:34
[2017-08-29] VITALS (7 sets, daily range): BP systolic 130–150; BP diastolic 80–97; PULSE 58–86; RESP 18–20; TEMP 97.3–99.4; O2SAT 98–100
[2017-08-29] MEDS: INSULIN ASPART SUPPLEMENTAL SCALE SQ SCH ×4 (08:00→21:00)
[2017-08-29] MEDS: EZETIMIBE 10 MG TAB PO SCH (09:11)
[2017-08-29] MEDS: ATORVASTATIN 80 MG TAB PO SCH (09:11)
[2017-08-29] MEDS: INSULIN DETEMIR 100 UNITS/ML VIAL SQ SCH ×2 (09:12→22:05)
[2017-08-29] MEDS: ASPIRIN 325 MG TAB PO SCH (09:13)
[2017-08-29] MEDS: CLOPIDOGREL 75 MG TAB PO SCH (09:13)
[2017-08-29] MEDS: SODIUM CHLORIDE 0.9% FLUSH 10 ML FLUSH IV FLUSH SCH ×2 (09:14→21:00)
--- NOTE | 2017-08-29 10:50 | HHI.PR ---
Review/Management Diagnosis/Plan: (1) Acute ischemic left MCA stroke ICD Codes: I63.512 - Cerebral infarction due to unspecified occlusion or stenosis of left middle cerebral artery Status: Acute Plan: possible artery to artery embolic vs thrombotic vessel with 2/2 occlusion poorly controlled dm, hld recs neuro stable long discussion on diet with pt and partner. she is very supportive aspirin/plavix d/c aspirin in 2-3 months wt loss/exercise/ldl <70, dm/bp control suggest cardio eval for jamal/event monitor- now wants inpt cardio eval suggest heme eval if recurrent event despite risk factor reduction to r/o hypercoag state can f/u outpatient; may need outpatient psg (2) Cerebral aneurysm without rupture ICD Codes: I67.1 - Cerebral aneurysm, nonruptured Status: Chronic Plan: left mca and possibly rt <7 mm appreciate nsx eval may need f/u with [facility] signs/symptoms d/w pt to look out for (3) HLD (hyperlipidemia) ICD Codes: E78.5 - Hyperlipidemia, unspecified Status: Chronic Plan: poorly controlled. statin (4) Diabetes mellitus type 2, uncomplicated ICD Codes: E11.9 - Type 2 diabetes mellitus without complications Status: Chronic Plan: poorly controlled. needs better control/compliance Subjective Subjective Comments No acute events reported No headache No chest pain No dyspnea Active Medications Current Medications Medications (Trade) Dose Ordered Sig/Ana Route Start Time Stop Time Status Last Admin (NS Flush) 2 ml UNSCH PRN IV FLUSH 08/26/17 16:15 (NS Flush) 2 ml BID IV FLUSH 08/26/17 21:00 08/29/17 09:14 (Tylenol) 650 mg Q4H PRN PO 08/26/17 16:15 (Zofran Inj) 4 mg Q6H PRN IVP 08/26/17 16:15 (Tylenol) 650 mg Q6H PRN PO 08/26/17 16:15 08/28/17 23:32 ([place] 5-325 Mg) 1 tab Q4H PRN PO 08/26/17 16:15 (Narcan Inj) 0.4 mg UNSCH PRN IV PUSH 08/26/17 16:15 (Milk Of Magnesia Liq) 30 ml Q12H PRN PO 08/26/17 16:15 (D50w (Vial) Inj) 50 ml UNSCH PRN IV PUSH 08/26/17 18:00 (Glucagon Inj) 1 mg UNSCH PRN OTHER 08/26/17 18:00 (Zetia) 10 mg DAILY PO 08/27/17 09:00 08/29/17 09:11 (Aspirin) 325 mg DAILY PO 08/28/17 09:00 08/29/17 09:13 (Plavix) 75 mg DAILY PO 08/27/17 15:00 08/29/17 09:13 (Lipitor) 80 mg DAILY PO 08/28/17 09:00 08/29/17 09:11 (NovoLOG SUPPLEMENTAL SCALE) 1 ACHS SLIDING SCALE SQ 08/28/17 17:00 08/28/17 21:16 (Levemir Inj) 10 units Q12HR SQ 08/28/17 21:00 08/29/17 09:12 Allergies Allergies Coded Allergies butalbital (Unverified Adverse Reaction, Severe, hallucinating, severe weakness, 08/26/17) Uncoded Allergies BYDUREON ( Adverse Reaction, Severe, MUSCLE SPASMS, 07/02/15) Review of Systems All other ROS: ROS reviewed as documented in chart Exam I&O / VS Vital Signs Date Time Temp Pulse Resp B/P (MAP) Pulse Ox O2 Delivery O2 Flow Rate FiO2 08/29/17 08:41 97.9 65 20 130/94 (106) 100 08/29/17 04:57 97.4 58 18 144/80 (101) 100 08/29/17 00:44 98.6 77 18 142/97 (112) 99 08/28/17 23:59 65 08/28/17 21:26 97.4 74 18 135/79 (97) 98 08/28/17 20:30 74 08/28/17 16:16 97.4 68 19 137/85 (102) 100 08/28/17 15:21 66 08/28/17 12:52 97.3 71 18 133/71 (91) 99 General: Alert and Oriented, No acute distress Eye: EOMI Respiratory: Non-labored respirations Cardiology: Normal rate Musculoskeletal: ROM Neurologic: Alert, Oriented, Normal motor Psychiatric: Cooperative, Appropriate mood & affect, Normal judgement Exam Comments ox 3, follows, articulate, eomi, vff, minimal reduced rt nlf, eomi, vff, no drift, , ambulating stable Problem Qualifiers (1) Diabetes mellitus type 2, uncomplicated: Qualified Codes: E11.9 - Type 2 diabetes mellitus without complications Ameya Awad MD Aug 29, 2017 10:49
--- NOTE | 2017-08-29 12:56 | MB ---
cc: Edy Georges MD DATE OF CONSULT: REASON FOR CONSULTATION: Transesophageal echocardiography. HISTORY OF PRESENT ILLNESS: The patient is a 52-year-old male with a history of diabetes, hyperlipidemia, benign prostatic hypertrophy, who presented to the hospital with right facial and right arm numbness and tingling. Head CT on 08/26/2017, showed findings suggestive of possible lacunar infarct in the anterior limb of the right internal capsule. MRI on 08/26/2017, showed lacunar infarct in the left basal ganglia. The patient denies any significant cardiovascular symptoms including chest pain, shortness of breath, palpitations, paroxysmal nocturnal dyspnea, lightheadedness, syncope, near syncope, pedal edema. PAST MEDICAL HISTORY: 1. Diabetes. 2. Hyperlipidemia. 3. Benign prostatic hypertrophy. CURRENT CARDIAC MEDICATIONS: 1. Aspirin 325 mg p.o. daily. 2. Atorvastatin 80 mg p.o. at bedtime. 3. Clopidogrel 75 mg p.o. daily. 4. Zetia 10 mg p.o. daily. ALLERGIES: BUTALBITAL. FAMILY HISTORY: The patient's mother sustained a myocardial infarction at age 65. SOCIAL HISTORY: The patient denies alcohol or tobacco abuse. REVIEW OF SYSTEMS: As in the history of present illness, otherwise negative or noncontributory. He also denies headache, visual changes, abdominal pain, melena, dyspepsia, bright red blood per rectum. PHYSICAL EXAMINATION: VITAL SIGNS: Blood pressure 130/94 with a pulse of 65, respirations 20. GENERAL: He is a well-developed, well-nourished male in no acute distress. NECK: Jugular venous pressure is normal. Carotid pulses are 2+ bilaterally and without bruits. CHEST: Reveals clear lungs kendall. CARDIAC: He has a regular rhythm and rate without S3, S4, or murmur. ABDOMEN: He has a soft, nontender abdomen. Bowel sounds are present. There is no definite hepatosplenomegaly. EXTREMITIES: Reveal no clubbing, cyanosis, or edema. DIAGNOSTIC DATA: EKG shows sinus rhythm, poor R-wave progression, nonspecific T-wave abnormalities. LABORATORY DATA: Includes normal CBC, normal basic metabolic profile, except for glucose 259. LDL 182, total cholesterol 264, triglycerides 242, HDL 34. IMPRESSION: A 52-year-old male with a history of diabetes, hyperlipidemia, admitted with possible acute cerebrovascular accident. I have been asked to see the patient for transesophageal echocardiography. He appears to have evidence for lacunar infarct on the right by head CT and lacunar infarct on the left by MRI. At this point, I would agree with the need for transesophageal echocardiography to rule out a cardiac source of embolism. The nature of transesophageal echocardiography and potential risks have been outlined to the patient. He agrees to proceed. RECOMMENDATIONS: Transesophageal echocardiography tomorrow morning. MD SAGE Meyer/ELEN , 12:09 PM , 12:54 PM MTDD
[2017-08-29] MEDS ORDERED: METOPROLOL TARTRATE 25 MG TAB PO PRN (15:00)
[2017-08-29] MEDS ORDERED: POVIDONE IODINE 5% (ANTISEPSIS KIT) 4 APPLICATIONS EACH NARE PRN (15:00)
[2017-08-29] MEDS ORDERED: SODIUM CHLORID 0.9% 500 ML IV PRN (15:00)
[2017-08-29] MEDS ORDERED: LACTATED RINGER'S 1000 ML IV PRN (15:00)
[2017-08-29] MEDS ORDERED: CHLORHEXIDINE GLUCONATE 2 % 1 PACK (2 CLOTHS) TOPICAL PRN (15:00)
--- NOTE | 2017-08-29 23:41 | HHI.PR ---
Subjective Remarks Patient says he is feeling well. no complaints. Objective Vital Signs Date Time Temp Pulse Resp B/P (MAP) Pulse Ox O2 Delivery O2 Flow Rate FiO2 08/29/17 19:57 97.3 86 19 139/86 (103) 99 08/29/17 16:32 99.4 81 20 150/81 (104) 98 08/29/17 13:12 69 08/29/17 12:33 98.0 67 20 131/83 (99) 99 08/29/17 08:41 97.9 65 20 130/94 (106) 100 08/29/17 04:57 97.4 58 18 144/80 (101) 100 08/29/17 00:44 98.6 77 18 142/97 (112) 99 08/28/17 23:59 65 I/O 08/29/17 08/29/17 08/29/17 08/30/17 08/30/17 08/30/17 07:00 15:00 23:00 07:00 15:00 23:00 Intake Total 480 ml Balance 480 ml Intake Oral 480 ml # Voids 2 3 # Bowel Movements 1 Result Diagram: 08/27/17 0542 08/27/17 0542 Objective Remarks GENERAL: patient sitting up on edge bed. Appears comfortable.alert and oriented 4.no change on exam SKIN: Warm and dry. HEAD: Normocephalic. EYES: No scleral icterus. No injection or drainage. NECK: Supple, trachea midline. No JVD. CARDIOVASCULAR: Regular rate and rhythm without murmurs, gallops, or rubs. RESPIRATORY: Breath sounds equal bilaterally. No accessory muscle use. GASTROINTESTINAL: Abdomen soft, non-tender, nondistended. MUSCULOSKELETAL: No cyanosis, or edema. BACK: Nontender without obvious deformity. No CVA tenderness. A/P Assessment and Plan ======08/29========= diabetes control improved with blood sugars in the 100s this morning Awaiting cardiology evaluation for possible YEN. =- Patient is a 52-year-old -[place] male with primary medical history of diabetes, HLD, vitamin D deficiency, obesity, BPH who came into the hospital for complaints of right arm, face, head numbness and tingling. //CVA -Complaints of numbness and tingling right arm, face, lips -CT of the head showed tiny focus of decreased attenuation in the expected region of the anterior limb of the right internal capsule consistent with possible lacunar infarct of indeterminate age. -Cervical spine CT showed 1. Small disc bulges at C4-C5, C5-C6 and C6-C7. 2. No acute fracture or destructive lesion identified -Brain MRI showed 1. Small area of abnormal diffusion restricted signal involving the left basal ganglia consistent with an area of //lacunar infarct -Brain MRA pending follow-up results -EKG reviewed sinus rhythm with first-degree AV block with nonspecific T- wave abnormality, heart rate in the 66 -Previous stress tests 10/04/16 unremarkable -Consult neurology for further evaluation recommendation -Patient was given aspirin 325 mg in the ED -Start antiplatelet therapy -Check carotid ultrasound, 2D echocardiogram -Neurochecks Q4 -Permissive hypertension -PT/OT evaluate //Hyperlipidemia -On ezetimibe and outpatient will continue -Check lipid profile. Patient may need to start statin medication //DM 2 -Hold home dose metformin for now -Insulin sliding scale. -Check hemoglobin A1c. Monitor Accu-Cheks. 08/27 A1c 10.9. Discussed poor controlled diabetes with patient. He will need insulin. Ordered life educator consult. DVT prop Lovenox Discharge Planning will need transesophageal echocardiogram. pending neurology clearance. Fahad Honeycutt MD Aug 29, 2017 23:41
[2017-08-29] MEDS ORDERED: SODIUM CHLOR 0.9% 250 ML INJ 250 ML IV ONE (23:45)
[2017-08-30 00:52] VITALS: BP 113/61; PULSE 73; RESP 18; TEMP 98; O2SAT 98
[2017-08-30] MEDS: SODIUM CHLOR 0.9% 1000 ML INJ 1,000 ML IV SCH ×2 (01:10→08:31)
[2017-08-30 03:52] LABS: BASOPHIL # 0.1 TH/MM3 (0-0.2); BASOPHIL % 0.6 % (0.0-2.0); EOSINOPHIL % 0.4 % (0.0-4.0); HEMATOCRIT 41.2 % (39.0-51.0); HEMOGLOBIN 13.7 GM/DL (13.0-17.0); LYMPH % 27.4 % (9.0-44.0); LYMPHOCYTE # 2.9 TH/MM3 (1.0-4.8); MEAN CELL VOLUME 80.4 FL (80.0-100.0); MEAN CORPUSCULAR HEMOGLOBIN 26.8 PG (27.0-34.0); MEAN CORPUSCULAR HGB CONC 33.3 % (32.0-36.0); MEAN PLATELET VOLUME 8.2 FL (7.0-11.0); MONOCYTE # 0.6 TH/MM3 (0-0.9); NEUT % 65.6 % (16.0-70.0); PLATELET COUNT 201 TH/MM3 (150-450); RED BLOOD COUNT 5.13 MIL/MM3 (4.50-5.90); RED CELL DISTRIBUTION WIDTH 14.3 % (11.6-17.2); WHITE BLOOD COUNT 10.6 TH/MM3 (4.0-11.0)
[2017-08-30 04:03] VITALS: BP 134/82; PULSE 69; RESP 18; TEMP 97.8; O2SAT 96
[2017-08-30 04:24] LABS: ALBUMIN 3.3 GM/DL (3.4-5.0); BICARBONATE 22.7 MEQ/L (21.0-32.0); CALCIUM 8.9 MG/DL (8.5-10.1); CREATININE 1.07 MG/DL (0.60-1.30); MAGNESIUM 1.9 MG/DL (1.5-2.5)
[2017-08-30 04:25] LABS: PHOSPHORUS 3.6 MG/DL (2.5-4.9)
[2017-08-30 08:00] VITALS: BP 148/91; PULSE 68; RESP 18; TEMP 98.2; O2SAT 100
[2017-08-30] MEDS: INSULIN ASPART SUPPLEMENTAL SCALE SQ SCH ×2 (08:00→12:00)
[2017-08-30] MEDS: EZETIMIBE 10 MG TAB PO SCH (08:30)
[2017-08-30] MEDS: ASPIRIN 325 MG TAB PO SCH (08:33)
[2017-08-30] MEDS: INSULIN DETEMIR 100 UNITS/ML VIAL SQ SCH (08:33)
[2017-08-30] MEDS: SODIUM CHLORIDE 0.9% FLUSH 10 ML FLUSH IV FLUSH SCH (08:33)
[2017-08-30] MEDS: CLOPIDOGREL 75 MG TAB PO SCH (08:33)
[2017-08-30] MEDS ORDERED: PROPOFOL 200 MG/20 ML AMP ONE (08:51)
[2017-08-30] MEDS ORDERED: PLAV75TA29 PO (11:51)
[2017-08-30] MEDS ORDERED: ASPI81TA23 PO (11:51)
[2017-08-30] MEDS ORDERED: NOVOLOGSS SQ (11:51)
[2017-08-30] MEDS ORDERED: BLOOD GLUCOSE M1 KIT (11:54)
[2017-08-30] MEDS ORDERED: LANCETS1 MI1 (11:54)
[2017-08-30] MEDS ORDERED: ALCO1PAD (11:54)
[2017-08-30] MEDS ORDERED: BLOOD GLUCOSE T1 TES (11:54)
[2017-08-30] MEDS ORDERED: LEVEMIR SQ (11:55)
--- NOTE | 2017-08-30 12:01 | HHI.PR ---
Subjective Remarks Patient seen today following transesophageal echocardiogram. Patient says he is feeling well. Denies any chest pain or shortness of breath. Denies any nausea or vomiting Objective Vital Signs Date Time Temp Pulse Resp B/P (MAP) Pulse Ox O2 Delivery O2 Flow Rate FiO2 08/30/17 08:00 98.2 68 18 148/91 (110) 100 08/30/17 04:03 97.8 69 18 134/82 (99) 96 08/30/17 00:52 98.0 73 18 113/61 (78) 98 08/29/17 19:57 97.3 86 19 139/86 (103) 99 08/29/17 16:32 99.4 81 20 150/81 (104) 98 08/29/17 13:12 69 08/29/17 12:33 98.0 67 20 131/83 (99) 99 I/O 08/29/17 08/29/17 08/29/17 08/30/17 08/30/17 08/30/17 07:00 15:00 23:00 07:00 15:00 23:00 Intake Total 480 ml Balance 480 ml Intake Oral 480 ml # Voids 2 3 3 # Bowel Movements 1 Result Diagram: 08/30/17 0330 08/30/17 0330 Objective Remarks GENERAL: patient sitting up on edge bed. Appears comfortable.alert and oriented 4. Again, no change on exam SKIN: Warm and dry. HEAD: Normocephalic. EYES: No scleral icterus. No injection or drainage. NECK: Supple, trachea midline. No JVD. CARDIOVASCULAR: Regular rate and rhythm without murmurs, gallops, or rubs. RESPIRATORY: Breath sounds equal bilaterally. No accessory muscle use. GASTROINTESTINAL: Abdomen soft, non-tender, nondistended. MUSCULOSKELETAL: No cyanosis, or edema. BACK: Nontender without obvious deformity. No CVA tenderness. A/P Assessment and Plan ======08/30========= YEN reportedly without thrombus. Patient to follow-up with neurology, cardiology, endocrinology as outpatient. =- Patient is a 52-year-old -Malag[place] male with primary medical history of diabetes, HLD, vitamin D deficiency, obesity, BPH who came into the hospital for complaints of right arm, face, head numbness and tingling. //CVA -Complaints of numbness and tingling right arm, face, lips -CT of the head showed tiny focus of decreased attenuation in the expected region of the anterior limb of the right internal capsule consistent with possible lacunar infarct of indeterminate age. -Cervical spine CT showed 1. Small disc bulges at C4-C5, C5-C6 and C6-C7. 2. No acute fracture or destructive lesion identified -Brain MRI showed 1. Small area of abnormal diffusion restricted signal involving the left basal ganglia consistent with an area of //lacunar infarct -Brain MRA pending follow-up results -EKG reviewed sinus rhythm with first-degree AV block with nonspecific T- wave abnormality, heart rate in the 66 -Previous stress tests 10/04/16 unremarkable -Consult neurology for further evaluation recommendation -Patient was given aspirin 325 mg in the ED -Start antiplatelet therapy -Check carotid ultrasound, 2D echocardiogram -Neurochecks Q4 -Permissive hypertension -PT/OT evaluate //Hyperlipidemia -On ezetimibe and outpatient will continue -Check lipid profile. Patient may need to start statin medication = Patient previously intolerant of statin medications secondary to rhabdomyolysis. = Will continue on Zetia. //DM 2 -Hold home dose metformin for now -Insulin sliding scale. -Check hemoglobin A1c. Monitor Accu-Cheks. 08/27 A1c 10.9. Discussed poor controlled diabetes with patient. He will need insulin. Ordered rn diabetes educator consult. = Discharge home with Levemir, insulin sliding scale, diabetic supplies. Follow -up with landscaping crew leader as outpatient. DVT prop Lovenox Discharge Planning will need transesophageal echocardiogram. pending neurology clearance. Fahad Honeycutt MD Aug 30, 2017 12:01
--- NOTE | 2017-08-30 12:13 | HHI.DS ---
Discharge Summary Admission Date Aug 26, 2017 at 15:57 Discharge Date: Aug 30, 2017 Admitting Diagnosis CVA (1) Diabetes mellitus type 2, uncomplicated ICD Code: E11.9 - Type 2 diabetes mellitus without complications Status: Chronic (2) Paresthesia and pain of right extremity ICD Code: M79.609 - Pain in unspecified limb; R20.2 - Paresthesia of skin Status: Acute (3) CVA (cerebral vascular accident) ICD Code: I63.9 - Cerebral infarction, unspecified Status: Acute (4) Low serum vitamin D ICD Code: R79.89 - Other specified abnormal findings of blood chemistry Status: Acute Procedures And esophageal echocardiogram. Please see report Brief History - From Admission Patient is a 52-year-old -[place] male with primary medical history of diabetes, HLD, vitamin D deficiency, obesity, BPH who came into the hospital for complaints of right arm, face, head numbness and tingling. States it started previous day but that got better and occurred again. States that his right hand feels numb there is some tingling sensation and right arm feeling of sleep. States that his face and lips were also numb usually on the right side. Denies any slurred speech, difficulty swallowing changes in vision. However states that with his lips being numb, it is affecting his regular normal speech. States that they have nasal congestion about a week ago and also some cough that he completed antibiotics for it. Denies unilateral weakness. Denies pain and discomfort. Denies SOB/ dyspnea. Denies chest pain, palpitations, headaches, dizziness. Denies fevers, chills, n/v/d. Denies dysuria. CT of the head showed tiny focus of decreased attenuation in the expected region of the anterior limb of the right internal capsule consistent with possible lacunar infarct of indeterminate age. Cervical spine CT showed 1. Small disc bulges at C4-C5, C5-C6 and C6-C7. 2. No acute fracture or destructive lesion identified Brain MRI showed 1. Small area of abnormal diffusion restricted signal involving the left basal ganglia consistent with an area of lacunar infarct CBC/BMP: 08/30/17 0330 08/30/17 0330 Significant Findings Laboratory Tests Test 08/30/17 03:30 Mean Corpuscular Hemoglobin 26.8 PG (27.0-34.0) Random Glucose 298 MG/DL (74-106) Albumin 3.3 GM/DL (3.4-5.0) Sodium Level 135 MEQ/L (136-145) Imaging Last Impressions Neck CTA 08/27/17 0000 Signed Impressions: Service Date/Time: Sunday, August 27, 2017 20:44 - CONCLUSION: Widely patent carotids and vertebral arteries. Kem Ornelas MD Head CTA 08/27/17 0000 Signed Impressions: Service Date/Time: Sunday, August 27, 2017 20:44 - CONCLUSION: 1. 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 Probably a 3 mm aneurysm in a similar location on the right. 2. No significant stenoses. No evidence of vessel thrombosis. Kem Ornelas MD Head CT 08/26/17 1322 Signed Impressions: Service Date/Time: August 15:06 - CONCLUSION: Tiny focus of decreased attenuation in the expected region of the anterior limb of the right internal capsule consistent with possible lacunar infarct of indeterminate age. Clinical correlation is recommended. Migue Goss MD Head Magnetic Resonance Angiography 08/26/17 0000 Signed Impressions: Service Date/Time: August 16:54 - CONCLUSION: 1. There is signal dropout involving the distal M1 segment on the left concerning for embolic disease. This could be further assessed with CT angiography if it is felt clinically warranted. Joseph Yo MD Cervical Spine CT 08/26/17 0000 Signed Impressions: Service Date/Time: August 15:06 - CONCLUSION: 1. Small disc bulges at C4/5, C5/6 and C6/7. 2. No acute fracture or destructive lesion identified. Joseph Yo MD Carotid Artery Ultrasound 08/26/17 0000 Signed Impressions: Service Date/Time: August 19:41 - CONCLUSION: Within normal limits. No significant plaque or narrowing on either side. Kem Ornelas MD Brain MRI 08/26/17 0000 Signed Impressions: Service Date/Time: August 16:54 - CONCLUSION: 1. Small area of abnormal diffusion restricted signal involving the left basal ganglia consistent with an area of lacunar infarct Joseph Yo MD Hospital Course Lacunar infarct seen on brain MRI as above. CT angiogram brain shows left middle cerebral artery aneurysm measuring 6 x 4 x 3 mm. Patient underwent transesophageal echocardiogram without any thrombus. Please see report. Neurosurgery was consulted due to aneurysm, and patient will need referral to tertiary care center which will be done as by neurosurgery as outpatient. Patient also found to have markedly uncontrolled diabetes with A1c 10.9 on admission. Patient was started on insulin sliding scale, Levemir. He will follow with medical physicist as outpatient. Patient also found to have hyperlipidemia with LDL of 182. Patient with history of rhabdomyolysis in the past on statin medications. Will continue Zetia. Follow-up with primary care, neurology as outpatient to consider other options. For problem based summary from most recent progress note, please see below ======08/30========= YEN reportedly without thrombus. Patient to follow-up with neurology, cardiology, endocrinology as outpatient. =- Patient is a 52-year-old -[place] male with primary medical history of diabetes, HLD, vitamin D deficiency, obesity, BPH who came into the hospital for complaints of right arm, face, head numbness and tingling. //CVA -Complaints of numbness and tingling right arm, face, lips -CT of the head showed tiny focus of decreased attenuation in the expected region of the anterior limb of the right internal capsule consistent with possible lacunar infarct of indeterminate age. -Cervical spine CT showed 1. Small disc bulges at C4-C5, C5-C6 and C6-C7. 2. No acute fracture or destructive lesion identified -Brain MRI showed 1. Small area of abnormal diffusion restricted signal involving the left basal ganglia consistent with an area of //lacunar infarct -Brain MRA pending follow-up results -EKG reviewed sinus rhythm with first-degree AV block with nonspecific T- wave abnormality, heart rate in the 66 -Previous stress tests 10/04/16 unremarkable -Consult neurology for further evaluation recommendation -Patient was given aspirin 325 mg in the ED -Start antiplatelet therapy -Check carotid ultrasound, 2D echocardiogram -Neurochecks Q4 -Permissive hypertension -PT/OT evaluate //Hyperlipidemia -On ezetimibe and outpatient will continue -Check lipid profile. Patient may need to start statin medication = Patient previously intolerant of statin medications secondary to rhabdomyolysis. = Will continue on Zetia. //DM 2 -Hold home dose metformin for now -Insulin sliding scale. -Check hemoglobin A1c. Monitor Accu-Cheks. 08/27 A1c 10.9. Discussed poor controlled diabetes with patient. He will need insulin. Ordered dynamicist consult. = Discharge home with Levemir, insulin sliding scale, diabetic supplies. Follow -up with medical physicist as outpatient. DVT prop Lovenox Discharge Planning will need transesophageal echocardiogram. pending neurology clearance. Pt Condition on Discharge: Good Discharge Disposition: Discharge Home Discharge Time: > 30 minutes Discharge Instructions DIET: Follow Instructions for: Heart Healthy Diet, Diabetic Diet Activities you can perform: Regular-No Restrictions Follow up Referrals: Cardiology - 1 Week Endocrinology - 1 Week Neurology - 1 Week with Ameya Awad MD Neurosurgery - 1 Week with Malcolm Mata MD PCP Follow-up - 1 Week with Ariana Rodas MD New Medications: Alcohol Swabs (Alcohol Prep Pads) 70 % Pad PAD .XX DIRECTED for Aseptic process, #[address] (Aspirin EC) 81 Mg Tabdr 81 MG PO DAILY for Blood Clot Prevention for 30 Days, #30 TAB 0 Refills Blood Glucose Monitoring W/Device (Blood Glucose Monitoring W/Device) 1 Kit Kit KIT .XX DIRECTED for Blood Sugar Management, #1 0 Refills Blood Glucose Test Strips (Blood Glucose Test Strips) Strips Strip EA .XX DIRECTED for Blood Sugar Management, #1 0 Refills Lancets (Lancets) 1 Mis Mis BOX .XX DIRECTED for Blood Sugar Management, #1 0 Refills Clopidogrel (Plavix) 75 Mg Tab 75 MG PO DAILY for Blood Clot Prevention for 30 Days, #30 TAB Insulin Aspart Inj (Novolog Inj) 100 Unit/Ml Inj 1 INJECTION SQ ACHS SLIDING SCALE for Blood Sugar Management for 30 Days, INJECTION Insulin Detemir Inj (Levemir Inj) 1,000 unit/ 10 ML Vial 11 UNITS SQ Q12HR for Blood Sugar Management for 30 Days, INJECTION Do not mix with any other Insulin. Continued Medications: Cholecalciferol (Vitamin D3) 50,000 Unit Cap 02643 UNITS PO Q7D for Nutritional Supplement, #30 CAP 0 Refills Ezetimibe (Ezetimibe) 10 Mg Tab 10 MG PO DAILY, #30 TAB 0 Refills Metformin (Glucophage) 1,000 Mg Tab 1000 MG PO BIDPC for Blood Sugar Management, #60 TAB 0 Refills With a meal Montelukast (Montelukast) 10 Mg Tab 10 MG PO HS, #90 TAB 1 Refill Tadalafil (Cialis) 5 Mg Tab 5 MG PO DAILY, TAB 0 Refills Do not exceed 1 dose/day. Fahad Honeycutt MD Aug 30, 2017 12:13
[2017-08-30 14:19] VITALS: PULSE 66
[2017-08-30] MEDS ORDERED: INSU1INJ5 SQ (14:29)
[2017-08-30] MEDS ORDERED: NOVOINJ3 SQ (14:29)
--- NOTE | 2017-08-31 22:49 | ECHRPT ---
Indication: ENDOCARDITIS CONCLUSIONS Normal left ventricular size with upper normal wall thickness. The left ventricular systolic functio n is normal with an estimated ejection fraction in the range of 60-65%. Normal wall motion. Structurally normal mitral valve. Trace mitral valve regurgitation. Trileaflet aortic valve. Mild aortic valve sclerosis is present. Structurally normal tricuspid valve. There is trace tricuspid valve regurgitation. Normal left atrial appendage size with no evidence of thrombus formation. No atrial level shunt is demonstrated by color flow Doppler interrogation. No atrial level shunt is observed with agitated saline contrast administration. BP: / HR: Rhythm: Technical Quality: Medications Complications Proc. Components FINDINGS LEFT VENTRICLE Normal left ventricular size with upper normal wall thickness. The left ventricular systolic functio n is normal with an estimated ejection fraction in the range of 60-65%. Normal wall motion. RIGHT VENTRICLE Normal right ventricular size and systolic function. LEFT ATRIUM The left atrial size is normal. RIGHT ATRIUM The right atrial size is normal. ATRIAL APPENDAGES Normal left atrial appendage size with no evidence of thrombus formation. ATRIAL SEPTUM No atrial level shunt is demonstrated by color flow Doppler interrogation. No atrial level shunt is observed with agitated saline contrast administration. AORTA The aortic root and proximal ascending aorta are normal in size on limited imaging. MITRAL VALVE Structurally normal mitral valve. Trace mitral valve regurgitation. AORTIC VALVE Trileaflet aortic valve. Mild aortic valve sclerosis is present. TRICUSPID VALVE Structurally normal tricuspid valve. There is trace tricuspid valve regurgitation. VESSELS The inferior vena cava is normal in size. PULMONARY VALVE The pulmonary valve is not well visualized. PERICADIUM No pericardial effusion. Edy Georges MD (Electronically Signed) Final Date:31 August 2017 22:48
== END 2017-08-30 15:02 | disposition home or self-care (01) | DRG 66 ==
LOC: NEPE 12:55 → NEDH 15:57 → N05B 18:52
PROVIDERS: ADMIT Internal Medicine; ATTEND Internal Medicine
PROC: B246ZZ4 Ultrasonography of Right and Left Heart, Transesophageal (ICD-10-PCS; principal; 2017-08-30)
DX: I63.512 Cerebral infarction due to unspecified occlusion or stenosis of left middle cerebral artery (principal); I67.1 Cerebral aneurysm, nonruptured; E11.65 Type 2 diabetes mellitus with hyperglycemia; M50.221 Other cervical disc displacement at C4-C5 level; I44.0 Atrioventricular block, first degree; E78.5 Hyperlipidemia, unspecified; N40.0 Benign prostatic hyperplasia without lower urinary tract symptoms; E66.9 Obesity, unspecified; E55.9 Vitamin D deficiency, unspecified; E78.00 Pure hypercholesterolemia, unspecified; Z68.39 Body mass index [BMI] 39.0-39.9, adult; Z79.84 Long term (current) use of oral hypoglycemic drugs; Z82.3 Family history of stroke
CPT/HCPCS: 70450; 70496; 70498; 70544; 70551; 72125; 80053; 80061; 80069; 82306; 82948; 83036; 83735; 84484; 85025; 85610; 85730; 93005; 93306; 93312; 93320; 93325; 93880; J1815; J7030; J7050; Q9967